=== PATIENT | male | born 1955 | race Caucasian/White ===

== ENCOUNTER 2017-01-02 19:05 | Inpatient (IN) | payer OTHER ==
[~2017-01-02] VITALS: Ht 180.3 cm; Wt 72.6 kg
[~2017-01-02 19:05] MED LIST: ATI1 PO; ATIVAN1 MG PO; CLEOCIN HCL300 MG PO; CLINDAMYCIN HC300 MG PO; FLAGYL500 MG PO; FOL1 PO; LAC PO; LEVAQUIN750 MG PO; LEVOFLOXACIN500 M1 PO; METOPROLOL TART25 M1 PO; MORPHINE SULFAT15 MG PO; MOTRIN800 MG PO; MUCINEX600 MG PO; NOR10T PO; OMEPRAZOLE DR20 M1 PO; OMEPRAZOLE40 M1 PO; PROVENTIL0.09 MG/A1 INH; THI100 PO; ZES10 PO; ZOC20 PO; ZOFRAN ODT4 MG SL
[2017-01-02 19:43] LABS: BASOPHIL % 0.1 % (0-2); PLATELET COUNT 193 x10^3mcL (130-400)
[2017-01-02 19:52] LABS: CALCIUM 8.2 mg/dL (8.5-10.1); CHLORIDE SERUM 105 mmol/L (98-107); CREATININE SERUM 0.6 mg/dL (0.7-1.3); GFR1 > 60 mL/min; GLUCOSE SERUM 97 mg/dL (74-106); POTASSIUM SERUM 3.2 mmol/L (3.5-5.1); RED CELL DISTRIBUTION WIDTH 14.9 % (11.5-14.5); SODIUM SERUM 142 mmol/L (136-145)
[2017-01-02 19:56] LABS: ALBUMIN 3.7 g/dL (3.4-5.0); ALKALINE PHOSPHATASE 90 U/L (46-116); ALT/SGPT 30 U/L (16-63); AST/SGOT 48 U/L (15-37); BILIRUBIN TOTAL 1.49 mg/dL (0.20-1.00); LIPASE 246 IU/L (73-393)
[2017-01-02 19:58] LABS: AMYLASE 117 U/L (25-115)
[2017-01-02] MEDS ORDERED: NOR10T (22:27)
[2017-01-02 22:40] LABS: CHOLESTEROL/HDL RATIO 1.4; PHOSPHOROUS 3.7 mg/dL (2.5-4.9)
[2017-01-02 22:48] LABS: T3 TOTAL 0.99 ng/mL
[2017-01-02 22:57] VITALS: BP 113/71
[2017-01-02 22:58] LABS: FREE T4 0.01 ng/dL (0.76-1.46); FREE THYROXINE INDEX 1.4 ug/dL (1.4-4.5); T4(THYROXINE) 2.4 ug/dL (4.7-13.3)
[2017-01-02 23:08] VITALS: BP 113/71
[2017-01-03 04:59] VITALS: BP 107/62
[2017-01-03 06:24] LABS: microscopic required? NO
[2017-01-03 06:39] LABS: urine erythrocyte NEGATIVE (NEGATIVE)
[2017-01-03 06:48] LABS: PLATELET COUNT 152 x10^3mcL (130-400)
[2017-01-03 06:57] LABS: RED CELL DISTRIBUTION WIDTH 15.1 % (11.5-14.5)
[2017-01-03 07:14] LABS: CALCIUM 7.3 mg/dL (8.5-10.1); CARBON DIOXIDE 25.4 mmol/L (21-32); CHLORIDE SERUM 106 mmol/L (98-107); CREATININE SERUM 0.6 mg/dL (0.7-1.3); GFR1 > 60 mL/min; GLUCOSE SERUM 68 mg/dL (74-106); MAGNESIUM 1.9 mg/dL (1.8-2.4); POTASSIUM SERUM 3.3 mmol/L (3.5-5.1); SODIUM SERUM 142 mmol/L (136-145)
[2017-01-03 07:28] LABS: AMPHETAMINE QUAL UR NONE DETECTED (NEG <=1000)
[2017-01-03 09:50] VITALS: BP 118/73
[2017-01-03 10:21] LABS: BAND NEUTROPHIL 0 % (0-10); BASOPHIL 0 % (0-2); MONOCYTE 7 % (0-7); SEGMENTED NEUTROPHILS 53 % (37-75)
[2017-01-03 10:22] LABS: PLATELET MORPHOLOGY PLATELETS NORMAL
[2017-01-03 14:50] VITALS: BP 124/78
[2017-01-03 17:45] VITALS: BP 141/87
[2017-01-03 21:59] VITALS: BP 141/91
[2017-01-04 06:40] LABS: BASOPHIL % 0.3 % (0-2); PLATELET COUNT 144 x10^3mcL (130-400); RED CELL DISTRIBUTION WIDTH 14.4 % (11.5-14.5)
[2017-01-04 06:43] LABS: CALCIUM 8.1 mg/dL (8.5-10.1); CARBON DIOXIDE 26.6 mmol/L (21-32); CHLORIDE SERUM 100 mmol/L (98-107); CREATININE SERUM 0.6 mg/dL (0.7-1.3); GFR1 > 60 mL/min; GLUCOSE SERUM 111 mg/dL (74-106); MAGNESIUM 1.5 mg/dL (1.8-2.4); PHOSPHOROUS 3.1 mg/dL (2.5-4.9); POTASSIUM SERUM 3.5 mmol/L (3.5-5.1); SODIUM SERUM 134 mmol/L (136-145)
[2017-01-04 06:52] VITALS: BP 151/94
[2017-01-04 07:59] VITALS: BP 128/80
[2017-01-04 13:01] VITALS: BP 112/75
[2017-01-04 14:15] VITALS: BP 137/86
[2017-01-04 18:04] VITALS: BP 104/77
[2017-01-04 21:10] VITALS: Ht 180.3 cm; Wt 72.6 kg
[2017-01-04 21:35] VITALS: BP 113/73
[2017-01-05 06:07] VITALS: BP 116/75
[2017-01-05 06:10] LABS: BASOPHIL % 0.2 % (0-2); PLATELET COUNT 132 x10^3mcL (130-400)
[2017-01-05 06:26] LABS: CALCIUM 8.2 mg/dL (8.5-10.1); CARBON DIOXIDE 26.8 mmol/L (21-32); CHLORIDE SERUM 105 mmol/L (98-107); CREATININE SERUM 0.7 mg/dL (0.7-1.3); GFR1 > 60 mL/min; GLUCOSE SERUM 94 mg/dL (74-106); PHOSPHOROUS 3.9 mg/dL (2.5-4.9); SODIUM SERUM 139 mmol/L (136-145)
[2017-01-05 06:30] LABS: ALBUMIN 3.1 g/dL (3.4-5.0)
[2017-01-05 06:49] LABS: RED CELL DISTRIBUTION WIDTH 15.2 % (11.5-14.5)
[2017-01-05 09:04] VITALS: BP 98/65
[2017-01-05] MEDS ORDERED: QUETIAPINE FUMA25 M1 PO (16:07)
[2017-01-05] MEDS ORDERED: ATI1 PO (16:17)
[2017-01-05] MEDS ORDERED: COLACE100 MG PO (16:22)
[2017-01-05] MEDS ORDERED: NORCO1 TA2 PO (16:22)
[2017-01-05 16:55] VITALS: BP 105/75
[2017-01-05 16:57] VITALS: BP 105/75
== END 2017-01-05 18:00 | disposition home or self-care (01) | DRG 775 ==
LOC: ED 19:05 → MU 21:36 → DU 21:36 → MU 01-03 13:23
PROVIDERS: Emergency Medicine; Family Medicine; ADMIT Family Medicine
DX: F10.129 Alcohol abuse with intoxication, unspecified (principal); G92 Toxic encephalopathy; K85.90 Acute pancreatitis without necrosis or infection, unspecified; S62.112A Displaced fracture of triquetrum [cuneiform] bone, left wrist, initial encounter for closed fracture; E87.6 Hypokalemia; E83.51 Hypocalcemia; E05.90 Thyrotoxicosis, unspecified without thyrotoxic crisis or storm; E83.42 Hypomagnesemia; G40.909 Epilepsy, unspecified, not intractable, without status epilepticus; J45.909 Unspecified asthma, uncomplicated; K29.70 Gastritis, unspecified, without bleeding; X58.XXXA Exposure to other specified factors, initial encounter; Y93.9 Activity, unspecified; M19.90 Unspecified osteoarthritis, unspecified site; Z86.73 Personal history of transient ischemic attack (TIA), and cerebral infarction without residual deficits; F31.9 Bipolar disorder, unspecified; Z98.890 Other specified postprocedural states; Z80.9 Family history of malignant neoplasm, unspecified; Z82.3 Family history of stroke; F17.200 Nicotine dependence, unspecified, uncomplicated
CPT/HCPCS: 80307; 83880; 84439; 97116-GP; 97530-GP; G0480; J2270; J2405; J3411; J3475; J3490; J3535; J7030; Q0092; Q0162

== ENCOUNTER 2017-01-12 16:43 | Inpatient (IN) | payer OTHER ==
[~2017-01-12] VITALS: Ht 180.3 cm; Wt 60.8 kg
[~2017-01-12 16:43] MED LIST changes: +COLACE100 MG PO; +NOR10T; +NORCO1 TA2 PO; +QUETIAPINE FUMA25 M1 PO
[2017-01-12 18:12] LABS: BASOPHIL % 0.3 % (0-2); PLATELET COUNT 289 x10^3mcL (130-400)
[2017-01-12 18:17] LABS: RED CELL DISTRIBUTION WIDTH 15.1 % (11.5-14.5)
[2017-01-12 18:21] LABS: CALCIUM 8.4 mg/dL (8.5-10.1); CARBON DIOXIDE 27.4 mmol/L (21-32); CHLORIDE SERUM 100 mmol/L (98-107); CREATININE SERUM 0.8 mg/dL (0.7-1.3); GFR1 > 60 mL/min; GLUCOSE SERUM 68 mg/dL (74-106); POTASSIUM SERUM 3.4 mmol/L (3.5-5.1); SODIUM SERUM 139 mmol/L (136-145)
[2017-01-12 18:30] LABS: ALBUMIN 3.9 g/dL (3.4-5.0); ALKALINE PHOSPHATASE 86 U/L (46-116); ALT/SGPT 24 U/L (16-63); AST/SGOT 38 U/L (15-37); TOTAL PROTEIN, SERUM 7.5 g/dL (6.4-8.2)
[2017-01-12 18:37] LABS: AMPHETAMINE QUAL UR NONE DETECTED (NEG <=1000)
[2017-01-13] MEDS ORDERED: LISINOPRIL2.5 MG ×2 (13:07→13:09)
[2017-01-13] MEDS ORDERED: OXYBUTYNIN CHLO10 MG PO (13:08)
[2017-01-13] MEDS ORDERED: COZAAR100 MG (13:08)
[2017-01-13] MEDS ORDERED: LABETALOL HYDR300 MG PO (13:09)
[2017-01-13] MEDS ORDERED: NOR10T PO (14:13)
[2017-01-13] MEDS ORDERED: ATIVAN1 MG PO (14:21)
[2017-01-13] MEDS ORDERED: SEROQUEL50 M1 PO (14:22)
[2017-01-13] MEDS ORDERED: NAPROXEN DELAY500 M1 PO (14:22)
[2017-01-13] MEDS ORDERED: COLACE100 MG PO (14:22)
[2017-01-13] MEDS ORDERED: GOOD SENSE OMEP20 MG PO (14:23)
[2017-01-13 15:22] LABS: PHOSPHOROUS 2.4 mg/dL (2.5-4.9)
[2017-01-13 15:28] LABS: T3 TOTAL 0.76 ng/mL
[2017-01-13 15:35] LABS: FREE T4 0.93 ng/dL (0.76-1.46); FREE THYROXINE INDEX 2.1 ug/dL (1.4-4.5); MAGNESIUM 1.8 mg/dL (1.8-2.4); T4(THYROXINE) 6.2 ug/dL (4.7-13.3)
[2017-01-13 15:48] LABS: CHOLESTEROL/HDL RATIO 1.4
[2017-01-13 16:47] VITALS: BP 132/89
[2017-01-13 18:22] VITALS: BP 132/89
[2017-01-13 20:29] VITALS: BP 114/59
[2017-01-13 21:09] LABS: microscopic required? NO
[2017-01-13 22:36] LABS: AMPHETAMINE QUAL UR NONE DETECTED (NEG <=1000)
[2017-01-13 22:39] LABS: urine erythrocyte NEGATIVE (NEGATIVE)
[2017-01-14 05:51] VITALS: BP 112/67
[2017-01-14 08:30] VITALS: BP 97/57
[2017-01-14 18:12] VITALS: BP 125/71
[2017-01-14 19:40] VITALS: BP 109/57
[2017-01-15 06:20] LABS: BASOPHIL % 0.4 % (0-2); PLATELET COUNT 249 x10^3mcL (130-400)
[2017-01-15 06:33] LABS: RED CELL DISTRIBUTION WIDTH 15.2 % (11.5-14.5)
[2017-01-15 06:38] LABS: CALCIUM 8.4 mg/dL (8.5-10.1); CARBON DIOXIDE 26.5 mmol/L (21-32); CHLORIDE SERUM 105 mmol/L (98-107); CREATININE SERUM 0.7 mg/dL (0.7-1.3); GFR1 > 60 mL/min; GLUCOSE SERUM 89 mg/dL (74-106); MAGNESIUM 3.5 mg/dL (1.8-2.4); PHOSPHOROUS 4.5 mg/dL (2.5-4.9); POTASSIUM SERUM 4.2 mmol/L (3.5-5.1); SODIUM SERUM 140 mmol/L (136-145)
[2017-01-15 09:50] VITALS: BP 101/58
[2017-01-15 17:17] VITALS: BP 101/55
[2017-01-15] MEDS ORDERED: SEROQUEL100 MG PO (18:39)
[2017-01-15 19:03] VITALS: BP 101/55
[2017-01-15 20:48] VITALS: BP 104/66
== END 2017-01-15 21:10 | DRG 775 ==
LOC: ED 16:43 → DU 01-13 14:50 → MU 01-13 14:50 → DU 01-13 16:36 → MU 01-14 06:23
PROVIDERS: Emergency Medicine; Family Medicine; ADMIT Family Medicine
DX: F10.229 Alcohol dependence with intoxication, unspecified (principal); F10.239 Alcohol dependence with withdrawal, unspecified; G92 Toxic encephalopathy; F31.5 Bipolar disorder, current episode depressed, severe, with psychotic features; E83.39 Other disorders of phosphorus metabolism; G40.909 Epilepsy, unspecified, not intractable, without status epilepticus; J45.909 Unspecified asthma, uncomplicated; E87.6 Hypokalemia; F17.210 Nicotine dependence, cigarettes, uncomplicated; R74.0 Nonspecific elevation of levels of transaminase and lactic acid dehydrogenase [LDH]; K29.70 Gastritis, unspecified, without bleeding; Z53.29 Procedure and treatment not carried out because of patient's decision for other reasons; E16.2 Hypoglycemia, unspecified; K29.20 Alcoholic gastritis without bleeding; Y90.9 Presence of alcohol in blood, level not specified; Z79.899 Other long term (current) drug therapy; Z85.46 Personal history of malignant neoplasm of prostate; Z86.73 Personal history of transient ischemic attack (TIA), and cerebral infarction without residual deficits; Z88.6 Allergy status to analgesic agent; Z80.9 Family history of malignant neoplasm, unspecified; Z82.3 Family history of stroke
CPT/HCPCS: 80307; 84439; 94150; G0480; J7030; J7620; J7626; Q0162

== ENCOUNTER 2017-01-23 23:23 | Emergency (ER) | payer OTHER ==
[~2017-01-23 23:23] MED LIST changes: +COZAAR100 MG; +GOOD SENSE OMEP20 MG PO; +LABETALOL HYDR300 MG PO; +LISINOPRIL2.5 MG; +NAPROXEN DELAY500 M1 PO; +OXYBUTYNIN CHLO10 MG PO; +SEROQUEL100 MG PO; +SEROQUEL50 M1 PO
[2017-01-23 23:54] LABS: BASOPHIL % 0.6 % (0-2); PLATELET COUNT 265 x10^3mcL (130-400); RED CELL DISTRIBUTION WIDTH 15.6 % (11.5-14.5)
[2017-01-24 00:54] LABS: CALCIUM 7.8 mg/dL (8.5-10.1); CARBON DIOXIDE 27.3 mmol/L (21-32); CHLORIDE SERUM 106 mmol/L (98-107); CREATININE SERUM 0.7 mg/dL (0.7-1.3); GFR1 > 60 mL/min; GLUCOSE SERUM 80 mg/dL (74-106); POTASSIUM SERUM 3.8 mmol/L (3.5-5.1); SODIUM SERUM 144 mmol/L (136-145)
[2017-01-24 00:58] LABS: ALBUMIN 3.5 g/dL (3.4-5.0); ALKALINE PHOSPHATASE 66 U/L (46-116); ALT/SGPT 31 U/L (16-63); AST/SGOT 35 U/L (15-37); BILIRUBIN TOTAL 0.3 mg/dL (0.20-1.00)
[2017-01-24 02:01] LABS: AMPHETAMINE QUAL UR NONE DETECTED (NEG <=1000)
[2017-01-24 06:40] VITALS: BP 104/69
== END 2017-01-24 06:40 | disposition home or self-care (01) ==
LOC: ED 23:23
PROVIDERS: Emergency Medicine
DX: R41.82 Altered mental status, unspecified (principal); F10.129 Alcohol abuse with intoxication, unspecified; J45.909 Unspecified asthma, uncomplicated; E11.9 Type 2 diabetes mellitus without complications; Z86.73 Personal history of transient ischemic attack (TIA), and cerebral infarction without residual deficits
CPT/HCPCS: 80307; G0480

== ENCOUNTER 2017-01-24 10:40 | Emergency (ER) | payer OTHER ==
[2017-01-24 11:21] LABS: microscopic required? NO
[2017-01-24 11:26] LABS: BASOPHIL % 0.2 % (0-2); PLATELET COUNT 268 x10^3mcL (130-400)
[2017-01-24 11:38] LABS: RED CELL DISTRIBUTION WIDTH 15.1 % (11.5-14.5)
[2017-01-24 11:40] LABS: CALCIUM 8.2 mg/dL (8.5-10.1); CHLORIDE SERUM 106 mmol/L (98-107); CREATININE SERUM 0.6 mg/dL (0.7-1.3); GFR1 > 60 mL/min; GLUCOSE SERUM 88 mg/dL (74-106); POTASSIUM SERUM 3.9 mmol/L (3.5-5.1); SODIUM SERUM 144 mmol/L (136-145)
[2017-01-24 11:40] LABS: UA SPECIFIC GRAVITY <=1.005 (1.005-1.035); urine erythrocyte NEGATIVE (NEGATIVE)
[2017-01-24 11:46] LABS: ALBUMIN 3.9 g/dL (3.4-5.0); ALKALINE PHOSPHATASE 73 U/L (46-116); ALT/SGPT 35 U/L (16-63); AST/SGOT 43 U/L (15-37); BILIRUBIN TOTAL 0.31 mg/dL (0.20-1.00)
[2017-01-24 11:56] LABS: AMPHETAMINE QUAL UR NONE DETECTED (NEG <=1000)
[2017-01-24 14:01] VITALS: BP 117/74
== END 2017-01-24 14:01 | disposition home or self-care (01) ==
LOC: ED 10:40
PROVIDERS: Specialist
DX: F10.229 Alcohol dependence with intoxication, unspecified (principal); F32.9 Major depressive disorder, single episode, unspecified; B44.1 Other pulmonary aspergillosis; Z86.11 Personal history of tuberculosis; Z90.2 Acquired absence of lung [part of]
CPT/HCPCS: 80307; 83880; G0480; J3490

== ENCOUNTER 2017-01-25 18:56 | Emergency (ER) | payer OTHER ==
[2017-01-25 20:25] LABS: BASOPHIL % 0.3 % (0-2); PLATELET COUNT 236 x10^3mcL (130-400); RED CELL DISTRIBUTION WIDTH 15.2 % (11.5-14.5)
[2017-01-25 20:34] LABS: CALCIUM 8.3 mg/dL (8.5-10.1); CARBON DIOXIDE 28.6 mmol/L (21-32); CHLORIDE SERUM 106 mmol/L (98-107); CREATININE SERUM 0.8 mg/dL (0.7-1.3); GFR1 > 60 mL/min; GLUCOSE SERUM 91 mg/dL (74-106); POTASSIUM SERUM 3.1 mmol/L (3.5-5.1); SODIUM SERUM 143 mmol/L (136-145)
[2017-01-25 20:39] LABS: ALBUMIN 3.5 g/dL (3.4-5.0); ALKALINE PHOSPHATASE 75 U/L (46-116); ALT/SGPT 28 U/L (16-63); AMYLASE 75 U/L (25-115); AST/SGOT 42 U/L (15-37); BILIRUBIN TOTAL 0.5 mg/dL (0.20-1.00); LIPASE 78 IU/L (73-393); TOTAL PROTEIN, SERUM 6.3 g/dL (6.4-8.2)
[2017-01-26 07:06] VITALS: BP 128/68
== END 2017-01-26 07:06 | disposition home or self-care (01) ==
LOC: ED 18:56
PROVIDERS: Emergency Medicine
DX: F10.129 Alcohol abuse with intoxication, unspecified (principal); R10.9 Unspecified abdominal pain; I63.9 Cerebral infarction, unspecified; E11.9 Type 2 diabetes mellitus without complications; J45.909 Unspecified asthma, uncomplicated; Z88.6 Allergy status to analgesic agent
CPT/HCPCS: G0480; J7030

== ENCOUNTER 2017-01-26 13:54 | Emergency (ER) | payer OTHER ==
[2017-01-26 19:04] VITALS: BP 113/68
== END 2017-01-26 19:04 | disposition home or self-care (01) ==
LOC: ED 13:54
DX: F10.229 Alcohol dependence with intoxication, unspecified (principal); J45.909 Unspecified asthma, uncomplicated; E11.9 Type 2 diabetes mellitus without complications; Z86.73 Personal history of transient ischemic attack (TIA), and cerebral infarction without residual deficits
CPT/HCPCS: 82962

== ENCOUNTER 2017-01-26 20:51 | Emergency (ER) | payer OTHER ==
[2017-01-26 22:44] VITALS: BP 115/69
== END 2017-01-26 22:40 | disposition other institution (70) ==
LOC: ED 20:51
DX: F10.229 Alcohol dependence with intoxication, unspecified (principal); E11.9 Type 2 diabetes mellitus without complications; Z86.73 Personal history of transient ischemic attack (TIA), and cerebral infarction without residual deficits; Z88.8 Allergy status to other drugs, medicaments and biological substances

== ENCOUNTER 2017-02-02 08:08 | Emergency (ER) | payer OTHER ==
[~2017-02-02] VITALS: Ht 152.4 cm; Wt 61.2 kg
[2017-02-02 10:46] LABS: BASOPHIL % 0.1 % (0-2); PLATELET COUNT 220 x10^3mcL (130-400); RED CELL DISTRIBUTION WIDTH 15.8 % (11.5-14.5)
[2017-02-02 10:50] LABS: CALCIUM 8.8 mg/dL (8.5-10.1); CARBON DIOXIDE 24.8 mmol/L (21-32); CHLORIDE SERUM 101 mmol/L (98-107); CREATININE SERUM 0.6 mg/dL (0.7-1.3); GFR1 > 60 mL/min; GLUCOSE SERUM 144 mg/dL (74-106); POTASSIUM SERUM 3.4 mmol/L (3.5-5.1); SODIUM SERUM 141 mmol/L (136-145)
[2017-02-02 10:55] LABS: ALBUMIN 4.1 g/dL (3.4-5.0); ALKALINE PHOSPHATASE 74 U/L (46-116); ALT/SGPT 22 U/L (16-63); AST/SGOT 36 U/L (15-37); BILIRUBIN TOTAL 0.69 mg/dL (0.20-1.00); LIPASE 81 IU/L (73-393); MAGNESIUM 1.4 mg/dL (1.8-2.4); TOTAL PROTEIN, SERUM 7.4 g/dL (6.4-8.2)
[2017-02-02 15:04] VITALS: BP 140/78
== END 2017-02-02 15:04 | disposition home or self-care (01) ==
LOC: ED 08:08
PROVIDERS: Emergency Medicine
DX: K29.20 Alcoholic gastritis without bleeding (principal); E87.8 Other disorders of electrolyte and fluid balance, not elsewhere classified; F10.20 Alcohol dependence, uncomplicated; D64.9 Anemia, unspecified; F31.9 Bipolar disorder, unspecified; J45.909 Unspecified asthma, uncomplicated; G40.909 Epilepsy, unspecified, not intractable, without status epilepticus; Z86.73 Personal history of transient ischemic attack (TIA), and cerebral infarction without residual deficits; Z88.6 Allergy status to analgesic agent; Z87.891 Personal history of nicotine dependence
CPT/HCPCS: J2405; J2765; J3490; J7030

== ENCOUNTER 2017-02-10 12:00 | Emergency (ER) | payer OTHER ==
[2017-02-10 18:18] VITALS: BP 125/69
== END 2017-02-10 18:18 | disposition home or self-care (01) ==
LOC: ED 12:00
DX: F10.129 Alcohol abuse with intoxication, unspecified (principal)

== ENCOUNTER 2017-04-03 15:07 | Emergency (ER) | payer OTHER ==
[2017-04-03 16:43] VITALS: BP 123/85
== END 2017-04-03 16:43 | disposition home or self-care (01) ==
LOC: ED 15:07
DX: S05.11XA Contusion of eyeball and orbital tissues, right eye, initial encounter (principal); H10.9 Unspecified conjunctivitis; J45.909 Unspecified asthma, uncomplicated; E11.9 Type 2 diabetes mellitus without complications; G40.909 Epilepsy, unspecified, not intractable, without status epilepticus; F10.20 Alcohol dependence, uncomplicated; Z79.899 Other long term (current) drug therapy; Z79.891 Long term (current) use of opiate analgesic; Z88.8 Allergy status to other drugs, medicaments and biological substances; Y04.2XXA Assault by strike against or bumped into by another person, initial encounter; Y93.89 Activity, other specified; Y92.89 Other specified places as the place of occurrence of the external cause; Y99.8 Other external cause status

== ENCOUNTER 2017-04-17 17:24 | Emergency (ER) | payer OTHER ==
[~2017-04-17] VITALS: Ht 182.9 cm; Wt 83.9 kg
[2017-04-17 20:46] LABS: CALCIUM 8.1 mg/dL (8.5-10.1); CARBON DIOXIDE 29.1 mmol/L (21-32); CHLORIDE SERUM 103 mmol/L (98-107); CREATININE SERUM 0.8 mg/dL (0.7-1.3); GFR1 > 60 mL/min; GLUCOSE SERUM 91 mg/dL (74-106); POTASSIUM SERUM 3.3 mmol/L (3.5-5.1); SODIUM SERUM 142 mmol/L (136-145)
[2017-04-17 20:48] LABS: BASOPHIL % 0.4 % (0-2); PLATELET COUNT 183 x10^3mcL (130-400)
[2017-04-17 20:51] LABS: ALBUMIN 3.9 g/dL (3.4-5.0); ALKALINE PHOSPHATASE 66 U/L (46-116); ALT/SGPT 35 U/L (16-63); AST/SGOT 66 U/L (15-37); BILIRUBIN TOTAL 0.86 mg/dL (0.20-1.00); TOTAL PROTEIN, SERUM 7.2 g/dL (6.4-8.2)
[2017-04-17 20:57] LABS: RED CELL DISTRIBUTION WIDTH 18.7 % (11.5-14.5)
[2017-04-18 03:30] VITALS: BP 101/60
== END 2017-04-18 03:30 | disposition home or self-care (01) ==
LOC: ED 17:24
PROVIDERS: Emergency Medicine
DX: S20.212A Contusion of left front wall of thorax, initial encounter (principal); J45.909 Unspecified asthma, uncomplicated; E11.9 Type 2 diabetes mellitus without complications; Z86.73 Personal history of transient ischemic attack (TIA), and cerebral infarction without residual deficits; W18.30XA Fall on same level, unspecified, initial encounter; Y93.89 Activity, other specified; Y92.89 Other specified places as the place of occurrence of the external cause; Y99.8 Other external cause status
CPT/HCPCS: J7030; Q0092; Q9967

== ENCOUNTER 2017-04-23 19:20 | Emergency (ER) | payer OTHER ==
[2017-04-24 00:17] VITALS: BP 129/76
== END 2017-04-24 00:17 | disposition home or self-care (01) ==
LOC: ED 19:20
DX: S20.212A Contusion of left front wall of thorax, initial encounter (principal); E11.9 Type 2 diabetes mellitus without complications; J45.909 Unspecified asthma, uncomplicated; Z86.73 Personal history of transient ischemic attack (TIA), and cerebral infarction without residual deficits; W18.30XA Fall on same level, unspecified, initial encounter; Y93.89 Activity, other specified; Y99.8 Other external cause status; Y92.89 Other specified places as the place of occurrence of the external cause
CPT/HCPCS: J7030

== ENCOUNTER 2017-07-01 07:17 | Emergency (ER) | payer OTHER ==
[2017-07-01 08:03] LABS: CALCIUM 8.6 mg/dL (8.5-10.1); CARBON DIOXIDE 24.7 mmol/L (21-32); CHLORIDE SERUM 94 mmol/L (98-107); CREATININE SERUM 0.6 mg/dL (0.7-1.3); GFR1 > 60 mL/min; GLUCOSE SERUM 97 mg/dL (74-106); POTASSIUM SERUM 3.2 mmol/L (3.5-5.1); SODIUM SERUM 135 mmol/L (136-145)
[2017-07-01 08:08] LABS: ALKALINE PHOSPHATASE 95 U/L (46-116); ALT/SGPT 21 U/L (16-63); AST/SGOT 37 U/L (15-37); BILIRUBIN TOTAL 2.81 mg/dL (0.20-1.00); LIPASE 108 IU/L (73-393); TOTAL PROTEIN, SERUM 7.6 g/dL (6.4-8.2)
[2017-07-01 08:17] LABS: BASOPHIL % 0.2 % (0-2); PLATELET COUNT 164 x10^3mcL (130-400)
[2017-07-01 08:18] LABS: RED CELL DISTRIBUTION WIDTH 16.8 % (11.5-14.5)
[2017-07-01 10:01] VITALS: BP 108/62
== END 2017-07-01 10:01 | disposition home or self-care (01) ==
LOC: ED 07:17
PROVIDERS: Emergency Medicine
DX: R10.12 Left upper quadrant pain (principal); E87.6 Hypokalemia; J45.909 Unspecified asthma, uncomplicated; R11.10 Vomiting, unspecified; G89.29 Other chronic pain; R07.89 Other chest pain; Z88.6 Allergy status to analgesic agent; Z87.19 Personal history of other diseases of the digestive system
CPT/HCPCS: J2550; J3010; J7030

== ENCOUNTER 2017-11-26 13:54 | Emergency (ER) | payer OTHER ==
[~2017-11-26] VITALS: Ht 177.8 cm; Wt 70.3 kg
[2017-11-26 14:13] VITALS: Ht 177.8 cm; Wt 70.3 kg
[2017-11-26 15:21] VITALS: BP 112/74
== END 2017-11-26 15:21 | disposition home or self-care (01) ==
LOC: ED 13:54
DX: B02.8 Zoster with other complications (principal); J45.909 Unspecified asthma, uncomplicated; G89.29 Other chronic pain; G40.909 Epilepsy, unspecified, not intractable, without status epilepticus; Z86.73 Personal history of transient ischemic attack (TIA), and cerebral infarction without residual deficits; Z88.6 Allergy status to analgesic agent

== ENCOUNTER 2018-04-11 14:18 | Inpatient (IN) | payer OTHER ==
[~2018-04-11] VITALS: Ht 180.3 cm; Wt 64.9 kg
[2018-04-11 16:08] LABS: BASOPHIL % 0.8 % (0-2); PLATELET COUNT 214 x10^3mcL (130-400); RED CELL DISTRIBUTION WIDTH 15.3 % (11.5-14.5)
[2018-04-11 16:16] LABS: CALCIUM 8.8 mg/dL (8.5-10.1); CARBON DIOXIDE 24.8 mmol/L (21-32); CHLORIDE SERUM 104 mmol/L (98-107); GLUCOSE SERUM 96 mg/dL (74-106); POTASSIUM SERUM 3.3 mmol/L (3.5-5.1); SODIUM SERUM 140 mmol/L (136-145)
[2018-04-11 16:18] LABS: ALKALINE PHOSPHATASE 91 U/L (46-116); ALT/SGPT 17 U/L (16-63); AST/SGOT 19 U/L (15-37); BILIRUBIN TOTAL 0.6 mg/dL (0.20-1.00); LIPASE 148 IU/L (73-393); TOTAL PROTEIN, SERUM 7.6 g/dL (6.4-8.2)
[2018-04-11 16:19] LABS: HDL CHOLESTEROL 68 mg/dL (40-60)
[2018-04-11 16:29] LABS: T3 TOTAL 1.06 ng/mL
[2018-04-11 16:32] LABS: CHOLESTEROL 180 mg/dL (<200); CHOLESTEROL/HDL RATIO 2.6; CREATININE SERUM 0.7 mg/dL (0.7-1.3); GFR1 > 60 mL/min
[2018-04-11 16:33] LABS: TRIGLYCERIDES 144 mg/dL (<150)
[2018-04-11 16:51] LABS: FREE T4 1.28 ng/dL (0.76-1.46); FREE THYROXINE INDEX 3.9 ug/dL (1.4-4.5); T4(THYROXINE) 10.5 ug/dL (4.7-13.3)
[2018-04-11] MEDS ORDERED: NEU300 PO (16:52)
[2018-04-11 17:03] LABS: UA SPECIFIC GRAVITY <=1.005 (1.005-1.035); microscopic required? YES; urine erythrocyte TRACE (NEGATIVE)
[2018-04-11 17:53] VITALS: BP 127/77
[2018-04-11 18:03] VITALS: Ht 180.3 cm; Wt 64.9 kg
[2018-04-11 18:40] LABS: MAGNESIUM 2.3 mg/dL (1.8-2.4); PHOSPHOROUS 4.3 mg/dL (2.5-4.9)
[2018-04-11 19:37] LABS: AMPHETAMINE QUAL UR NONE DETECTED (See below)
[2018-04-11 21:28] VITALS: BP 98/62
[2018-04-12 05:46] VITALS: BP 129/65
[2018-04-12 07:20] LABS: CARBON DIOXIDE 25.5 mmol/L (21-32); CHLORIDE SERUM 106 mmol/L (98-107); GLUCOSE SERUM 93 mg/dL (74-106); MAGNESIUM 1.8 mg/dL (1.8-2.4); PHOSPHOROUS 3.3 mg/dL (2.5-4.9); POTASSIUM SERUM 4.3 mmol/L (3.5-5.1); SODIUM SERUM 139 mmol/L (136-145)
[2018-04-12 07:24] LABS: CREATININE SERUM 0.8 mg/dL (0.7-1.3); GFR1 > 60 mL/min
[2018-04-12 07:46] LABS: BASOPHIL % 0.3 % (0-2); PLATELET COUNT 187 x10^3mcL (130-400)
[2018-04-12 07:47] LABS: RED CELL DISTRIBUTION WIDTH 15.5 % (11.5-14.5)
[2018-04-12 08:43] VITALS: BP 110/66
[2018-04-12 12:43] VITALS: BP 145/92
[2018-04-12 14:41] VITALS: BP 145/92
[2018-04-12 17:59] VITALS: BP 102/57
[2018-04-12 21:06] VITALS: BP 107/70
[2018-04-13 05:06] VITALS: BP 114/68
[2018-04-13 06:22] LABS: CALCIUM 8.6 mg/dL (8.5-10.1); CARBON DIOXIDE 26.8 mmol/L (21-32); CHLORIDE SERUM 106 mmol/L (98-107); CREATININE SERUM 0.7 mg/dL (0.7-1.3); GFR1 > 60 mL/min; GLUCOSE SERUM 131 mg/dL (74-106); MAGNESIUM 1.8 mg/dL (1.8-2.4); PHOSPHOROUS 3.7 mg/dL (2.5-4.9); POTASSIUM SERUM 4.5 mmol/L (3.5-5.1); SODIUM SERUM 139 mmol/L (136-145)
[2018-04-13 07:13] LABS: PLATELET COUNT 204 x10^3mcL (130-400)
[2018-04-13 07:14] LABS: BASOPHIL % 0 % (0-2); RED CELL DISTRIBUTION WIDTH 15.8 % (11.5-14.5)
[2018-04-13 10:02] VITALS: BP 102/62
[2018-04-13 14:06] VITALS: BP 94/57
[2018-04-13 17:19] VITALS: BP 118/64
[2018-04-13 20:38] VITALS: BP 103/60
[2018-04-14 05:24] VITALS: BP 103/60
[2018-04-14 06:28] LABS: CALCIUM 8.4 mg/dL (8.5-10.1); CHLORIDE SERUM 106 mmol/L (98-107); CREATININE SERUM 0.7 mg/dL (0.7-1.3); GFR1 > 60 mL/min; GLUCOSE SERUM 137 mg/dL (74-106); MAGNESIUM 1.8 mg/dL (1.8-2.4); PHOSPHOROUS 3.4 mg/dL (2.5-4.9); POTASSIUM SERUM 3.9 mmol/L (3.5-5.1); SODIUM SERUM 141 mmol/L (136-145)
[2018-04-14 07:07] LABS: PLATELET COUNT 207 x10^3mcL (130-400)
[2018-04-14 07:09] LABS: BASOPHIL % 0 % (0-2)
[2018-04-14 09:14] VITALS: BP 104/68
[2018-04-14 13:55] VITALS: BP 114/56
[2018-04-14 17:18] VITALS: BP 115/73
[2018-04-14 20:47] VITALS: BP 128/75
[2018-04-15 06:07] VITALS: BP 124/67
[2018-04-15 06:46] LABS: PLATELET COUNT 207 x10^3mcL (130-400)
[2018-04-15 06:47] LABS: BASOPHIL % 0 % (0-2); RED CELL DISTRIBUTION WIDTH 15.7 % (11.5-14.5)
[2018-04-15 06:56] LABS: CALCIUM 9.2 mg/dL (8.5-10.1); CARBON DIOXIDE 26.7 mmol/L (21-32); CHLORIDE SERUM 102 mmol/L (98-107); CREATININE SERUM 0.7 mg/dL (0.7-1.3); GFR1 > 60 mL/min; GLUCOSE SERUM 133 mg/dL (74-106); MAGNESIUM 1.8 mg/dL (1.8-2.4); PHOSPHOROUS 3.9 mg/dL (2.5-4.9); SODIUM SERUM 138 mmol/L (136-145)
[2018-04-15 08:34] VITALS: BP 110/67
[2018-04-15] MEDS ORDERED: LIPI10 PO (09:56)
[2018-04-15] MEDS ORDERED: ZES5 PO (09:57)
[2018-04-15] MEDS ORDERED: METOPROLOL TART25 M1 PO (09:57)
[2018-04-15] MEDS ORDERED: ATI1 PO (09:58)
[2018-04-15] MEDS ORDERED: MEDDP PO (09:59)
[2018-04-15] MEDS ORDERED: AUG500 PO (10:02)
[2018-04-15] MEDS ORDERED: BD LACTINEX1.4 MG PO (10:03)
[2018-04-15 12:36] VITALS: BP 110/67
[2018-04-15 12:50] VITALS: BP 123/78
== END 2018-04-15 14:47 | disposition home or self-care (01) | DRG 140 ==
LOC: ED 14:18 → DU 16:42
PROVIDERS: Family Medicine; Specialist
DX: J44.0 Chronic obstructive pulmonary disease with (acute) lower respiratory infection (principal); J69.0 Pneumonitis due to inhalation of food and vomit; G92 Toxic encephalopathy; B44.1 Other pulmonary aspergillosis; M94.0 Chondrocostal junction syndrome [Tietze]; F10.129 Alcohol abuse with intoxication, unspecified; E87.6 Hypokalemia; F31.9 Bipolar disorder, unspecified; E78.5 Hyperlipidemia, unspecified; R31.9 Hematuria, unspecified; I34.0 Nonrheumatic mitral (valve) insufficiency; G89.29 Other chronic pain; Y90.1 Blood alcohol level of 20-39 mg/100 ml; Z53.29 Procedure and treatment not carried out because of patient's decision for other reasons; G40.909 Epilepsy, unspecified, not intractable, without status epilepticus; D72.829 Elevated white blood cell count, unspecified; T38.0X5A Adverse effect of glucocorticoids and synthetic analogues, initial encounter; J44.1 Chronic obstructive pulmonary disease with (acute) exacerbation; J20.9 Acute bronchitis, unspecified; Z68.20 Body mass index [BMI] 20.0-20.9, adult; Z86.73 Personal history of transient ischemic attack (TIA), and cerebral infarction without residual deficits; Z88.6 Allergy status to analgesic agent; Z87.01 Personal history of pneumonia (recurrent); Z82.3 Family history of stroke; Z80.9 Family history of malignant neoplasm, unspecified; Z87.891 Personal history of nicotine dependence; Z90.2 Acquired absence of lung [part of]; Z79.899 Other long term (current) drug therapy; Y92.89 Other specified places as the place of occurrence of the external cause
CPT/HCPCS: 83880; 84439; 87107; 94150; C9113; G0480; J2543; J2920; J7030; J7620; Q0092; Q9967

== ENCOUNTER 2018-04-22 14:04 | Emergency (ER) | payer OTHER ==
[~2018-04-22] VITALS: Ht 182.9 cm; Wt 77.1 kg
[~2018-04-22 14:04] MED LIST changes: +AUG500 PO; +BD LACTINEX1.4 MG PO; +LIPI10 PO; +MEDDP PO; +NEU300 PO; +ZES5 PO
[2018-04-22 14:10] VITALS: Ht 182.9 cm; Wt 77.1 kg
[2018-04-22 14:46] LABS: BASOPHIL % 0.2 % (0-2); PLATELET COUNT 330 x10^3mcL (130-400)
[2018-04-22 14:50] LABS: RED CELL DISTRIBUTION WIDTH 15.4 % (11.5-14.5)
[2018-04-22 15:30] LABS: CALCIUM 7.9 mg/dL (8.5-10.1); CARBON DIOXIDE 25.1 mmol/L (21-32); CHLORIDE SERUM 103 mmol/L (98-107); CREATININE SERUM 0.6 mg/dL (0.7-1.3); GFR1 > 60 mL/min; GLUCOSE SERUM 96 mg/dL (74-106); POTASSIUM SERUM 3.2 mmol/L (3.5-5.1); SODIUM SERUM 141 mmol/L (136-145)
[2018-04-22 15:35] LABS: ALBUMIN 3.7 g/dL (3.4-5.0); ALKALINE PHOSPHATASE 101 U/L (46-116); ALT/SGPT 20 U/L (16-63); AST/SGOT 22 U/L (15-37); BILIRUBIN TOTAL 0.8 mg/dL (0.20-1.00); TOTAL PROTEIN, SERUM 7.5 g/dL (6.4-8.2)
[2018-04-23 00:09] LABS: AMPHETAMINE QUAL UR NONE DETECTED (See below)
[2018-04-23 03:44] VITALS: BP 145/82
== END 2018-04-23 03:44 | disposition home or self-care (01) ==
LOC: ED 14:04
PROVIDERS: Emergency Medicine
DX: F10.129 Alcohol abuse with intoxication, unspecified (principal); F32.9 Major depressive disorder, single episode, unspecified; X30.XXXA Exposure to excessive natural heat, initial encounter
CPT/HCPCS: G0480; J3411; J3475; J3490; J7030

== ENCOUNTER 2018-05-01 10:58 | Emergency (ER) | payer OTHER ==
[~2018-05-01] VITALS: Ht 180.3 cm; Wt 65.8 kg
[2018-05-01 11:12] VITALS: Ht 180.3 cm; Wt 65.8 kg
[2018-05-01 12:30] LABS: BASOPHIL % 0.5 % (0-2); PLATELET COUNT 162 x10^3mcL (130-400)
[2018-05-01 12:53] LABS: CALCIUM 9.1 mg/dL (8.5-10.1); CARBON DIOXIDE 30.1 mmol/L (21-32); CHLORIDE SERUM 103 mmol/L (98-107); CREATININE SERUM 0.6 mg/dL (0.7-1.3); GFR1 > 60 mL/min; GLUCOSE SERUM 112 mg/dL (74-106); POTASSIUM SERUM 4.2 mmol/L (3.5-5.1); SODIUM SERUM 139 mmol/L (136-145)
[2018-05-01 12:57] LABS: ALBUMIN 3.7 g/dL (3.4-5.0); ALKALINE PHOSPHATASE 92 U/L (46-116); ALT/SGPT 17 U/L (16-63); AST/SGOT 18 U/L (15-37); BILIRUBIN TOTAL 1.25 mg/dL (0.20-1.00); CHOLESTEROL 162 mg/dL (<200); HDL CHOLESTEROL 82 mg/dL (40-60); PHOSPHOROUS 2.6 mg/dL (2.5-4.9); TOTAL PROTEIN, SERUM 7.2 g/dL (6.4-8.2); URIC ACID 4.7 mg/dL (3.5-7.2)
[2018-05-01 14:57] VITALS: BP 147/63
== END 2018-05-01 14:57 | disposition home or self-care (01) ==
LOC: ED 10:58
PROVIDERS: Emergency Medicine
PROC: 3E033GC Introduction of Other Therapeutic Substance into Peripheral Vein, Percutaneous Approach (ICD-10-PCS; principal; 2018-05-01)
DX: X30.XXXA Exposure to excessive natural heat, initial encounter (principal); J45.909 Unspecified asthma, uncomplicated; R56.9 Unspecified convulsions; Z86.73 Personal history of transient ischemic attack (TIA), and cerebral infarction without residual deficits; Y93.01 Activity, walking, marching and hiking; Y92.9 Unspecified place or not applicable
CPT/HCPCS: 83880; J2405; J7030; Q0092

== ENCOUNTER 2018-05-04 21:10 | Emergency (ER) | payer OTHER ==
[~2018-05-04] VITALS: Ht 170.2 cm; Wt 70.3 kg
[2018-05-04 21:24] VITALS: Ht 170.2 cm; Wt 70.3 kg
[2018-05-04 22:18] LABS: BASOPHIL % 0.3 % (0-2); PLATELET COUNT 250 x10^3mcL (130-400)
[2018-05-04 22:21] LABS: RED CELL DISTRIBUTION WIDTH 15.5 % (11.5-14.5)
[2018-05-04 22:29] LABS: CALCIUM 8.6 mg/dL (8.5-10.1); CARBON DIOXIDE 28.2 mmol/L (21-32); CHLORIDE SERUM 106 mmol/L (98-107); CREATININE SERUM 0.8 mg/dL (0.7-1.3); GFR1 > 60 mL/min; GLUCOSE SERUM 92 mg/dL (74-106); POTASSIUM SERUM 3.7 mmol/L (3.5-5.1); SODIUM SERUM 146 mmol/L (136-145)
[2018-05-04 22:34] LABS: ALBUMIN 3.8 g/dL (3.4-5.0); ALKALINE PHOSPHATASE 89 U/L (46-116); ALT/SGPT 21 U/L (16-63); AST/SGOT 23 U/L (15-37); BILIRUBIN TOTAL 0.48 mg/dL (0.20-1.00); CHOLESTEROL 187 mg/dL (<200); TOTAL PROTEIN, SERUM 7.5 g/dL (6.4-8.2)
[2018-05-04 23:45] VITALS: BP 117/75
== END 2018-05-05 00:24 | disposition home or self-care (01) ==
LOC: ED 21:10
PROVIDERS: Specialist
DX: F10.129 Alcohol abuse with intoxication, unspecified (principal); J45.909 Unspecified asthma, uncomplicated; Z86.73 Personal history of transient ischemic attack (TIA), and cerebral infarction without residual deficits; Z88.6 Allergy status to analgesic agent
CPT/HCPCS: 36415; G0480

== ENCOUNTER 2018-05-15 15:35 | Inpatient (IN) | payer OTHER ==
[~2018-05-15] VITALS: Ht 180.3 cm; Wt 70.9 kg
[2018-05-15 15:42] VITALS: Ht 180.3 cm; Wt 70.9 kg
[2018-05-15 18:20] LABS: BASOPHIL % 0.2 % (0-2); PLATELET COUNT 240 x10^3mcL (130-400)
[2018-05-15 18:21] LABS: RED CELL DISTRIBUTION WIDTH 15.4 % (11.5-14.5)
[2018-05-15 18:27] LABS: CALCIUM 6.9 mg/dL (8.5-10.1); CARBON DIOXIDE 22.1 mmol/L (21-32); CHLORIDE SERUM 107 mmol/L (98-107); CREATININE SERUM 0.8 mg/dL (0.7-1.3); GFR1 > 60 mL/min; GLUCOSE SERUM 87 mg/dL (74-106); POTASSIUM SERUM 3.3 mmol/L (3.5-5.1); SODIUM SERUM 140 mmol/L (136-145)
[2018-05-15 18:32] LABS: ALBUMIN 3.5 g/dL (3.4-5.0); ALKALINE PHOSPHATASE 80 U/L (46-116); ALT/SGPT 12 U/L (16-63); AST/SGOT 16 U/L (15-37); BILIRUBIN TOTAL 0.6 mg/dL (0.20-1.00); TOTAL PROTEIN, SERUM 6.6 g/dL (6.4-8.2)
[2018-05-15 19:38] LABS: PHOSPHOROUS 2.2 mg/dL (2.5-4.9)
[2018-05-15 19:39] LABS: CHOLESTEROL/HDL RATIO 2.5
[2018-05-15 19:42] LABS: T3 TOTAL 0.93 ng/mL
[2018-05-15 19:54] LABS: FREE T4 1.09 ng/dL (0.76-1.46); FREE THYROXINE INDEX 2.6 ug/dL (1.4-4.5); T4(THYROXINE) 7.3 ug/dL (4.7-13.3)
[2018-05-15 20:21] VITALS: BP 129/81
[2018-05-16 05:58] VITALS: BP 141/75
[2018-05-16 06:46] LABS: microscopic required? NO
[2018-05-16 07:04] LABS: BASOPHIL % 0.4 % (0-2); PLATELET COUNT 222 x10^3mcL (130-400)
[2018-05-16 07:14] LABS: RED CELL DISTRIBUTION WIDTH 15.1 % (11.5-14.5)
[2018-05-16 07:21] LABS: CALCIUM 7.5 mg/dL (8.5-10.1); CARBON DIOXIDE 23.8 mmol/L (21-32); CHLORIDE SERUM 106 mmol/L (98-107); CREATININE SERUM 0.6 mg/dL (0.7-1.3); GFR1 > 60 mL/min; GLUCOSE SERUM 73 mg/dL (74-106); MAGNESIUM 1.7 mg/dL (1.8-2.4); PHOSPHOROUS 2.6 mg/dL (2.5-4.9); POTASSIUM SERUM 4.4 mmol/L (3.5-5.1); SODIUM SERUM 137 mmol/L (136-145)
[2018-05-16 08:00] VITALS: BP 125/78
[2018-05-16 08:20] LABS: UA SPECIFIC GRAVITY >=1.030 (1.005-1.035); urine erythrocyte NEGATIVE (NEGATIVE)
[2018-05-16 17:08] VITALS: BP 138/86
[2018-05-16 21:21] VITALS: BP 106/55
[2018-05-17 05:11] VITALS: BP 115/81
[2018-05-17 06:14] LABS: BASOPHIL % 0.5 % (0-2); PLATELET COUNT 219 x10^3mcL (130-400)
[2018-05-17 06:38] LABS: ALBUMIN 3.1 g/dL (3.4-5.0); ALKALINE PHOSPHATASE 61 U/L (46-116); ALT/SGPT 15 U/L (16-63); AMYLASE 96 U/L (25-115); AST/SGOT 24 U/L (15-37); BILIRUBIN TOTAL 1.43 mg/dL (0.20-1.00); CALCIUM 8.7 mg/dL (8.5-10.1); CARBON DIOXIDE 29.5 mmol/L (21-32); CHLORIDE SERUM 103 mmol/L (98-107); CREATININE SERUM 0.7 mg/dL (0.7-1.3); GFR1 > 60 mL/min; GLUCOSE SERUM 82 mg/dL (74-106); MAGNESIUM 1.7 mg/dL (1.8-2.4); PHOSPHOROUS 3.2 mg/dL (2.5-4.9); POTASSIUM SERUM 3.9 mmol/L (3.5-5.1); SODIUM SERUM 140 mmol/L (136-145); TOTAL PROTEIN, SERUM 6.1 g/dL (6.4-8.2)
[2018-05-17 06:47] LABS: RED CELL DISTRIBUTION WIDTH 15.3 % (11.5-14.5)
[2018-05-17 09:45] VITALS: BP 128/78
[2018-05-17 16:51] VITALS: BP 113/73
[2018-05-17 21:36] VITALS: BP 104/65
[2018-05-18 05:46] VITALS: BP 129/78
[2018-05-18 08:26] LABS: BASOPHIL % 0.2 % (0-2); PLATELET COUNT 238 x10^3mcL (130-400)
[2018-05-18 08:27] LABS: RED CELL DISTRIBUTION WIDTH 15.1 % (11.5-14.5)
[2018-05-18 08:52] LABS: ALKALINE PHOSPHATASE 64 U/L (46-116); AST/SGOT 19 U/L (15-37); CALCIUM 8.7 mg/dL (8.5-10.1); CARBON DIOXIDE 28.9 mmol/L (21-32); CHLORIDE SERUM 103 mmol/L (98-107); CREATININE SERUM 0.8 mg/dL (0.7-1.3); GFR1 > 60 mL/min; GLUCOSE SERUM 96 mg/dL (74-106); POTASSIUM SERUM 4.2 mmol/L (3.5-5.1); SODIUM SERUM 140 mmol/L (136-145); TOTAL PROTEIN, SERUM 6.6 g/dL (6.4-8.2)
[2018-05-18 09:00] VITALS: BP 103/70
[2018-05-18 09:00] LABS: ALBUMIN 3.3 g/dL (3.4-5.0)
[2018-05-18 09:37] LABS: ALT/SGPT 17 U/L (16-63)
[2018-05-18 12:46] VITALS: BP 103/70
== END 2018-05-18 16:38 | disposition home or self-care (01) | DRG 137 ==
LOC: ED 15:35 → MU 18:20
PROVIDERS: Emergency Medicine; Family Medicine
PROC: 3E0234Z Introduction of Serum, Toxoid and Vaccine into Muscle, Percutaneous Approach (ICD-10-PCS; principal; 2018-05-16)
DX: J69.0 Pneumonitis due to inhalation of food and vomit (principal); E83.51 Hypocalcemia; F10.129 Alcohol abuse with intoxication, unspecified; G89.29 Other chronic pain; K44.9 Diaphragmatic hernia without obstruction or gangrene; E05.80 Other thyrotoxicosis without thyrotoxic crisis or storm; G40.909 Epilepsy, unspecified, not intractable, without status epilepticus; J44.9 Chronic obstructive pulmonary disease, unspecified; J20.9 Acute bronchitis, unspecified; Y90.9 Presence of alcohol in blood, level not specified; Z60.2 Problems related to living alone; E87.6 Hypokalemia; Z90.2 Acquired absence of lung [part of]; Z68.26 Body mass index [BMI] 26.0-26.9, adult; Z87.891 Personal history of nicotine dependence; Z88.6 Allergy status to analgesic agent; Z86.73 Personal history of transient ischemic attack (TIA), and cerebral infarction without residual deficits; Z87.01 Personal history of pneumonia (recurrent); Z79.899 Other long term (current) drug therapy; Z82.3 Family history of stroke; Z80.9 Family history of malignant neoplasm, unspecified; Z85.46 Personal history of malignant neoplasm of prostate; Z23 Encounter for immunization
CPT/HCPCS: 83880; 84439; 86480; 86580; 87116; 87206; G0480; J1885; J1956; J2543; J3490; J7030; Q0092; Q9967

== ENCOUNTER 2018-06-13 17:40 | Emergency (ER) | payer OTHER ==
[~2018-06-13] VITALS: Ht 177.8 cm; Wt 61.2 kg
[2018-06-13 17:50] VITALS: Ht 177.8 cm; Wt 61.2 kg
[2018-06-13 19:21] VITALS: BP 120/75
== END 2018-06-13 19:21 | disposition home or self-care (01) ==
LOC: ED 17:40
DX: F10.129 Alcohol abuse with intoxication, unspecified (principal); J45.909 Unspecified asthma, uncomplicated; G89.29 Other chronic pain; Z86.73 Personal history of transient ischemic attack (TIA), and cerebral infarction without residual deficits; Z98.890 Other specified postprocedural states; Z88.6 Allergy status to analgesic agent; Y90.9 Presence of alcohol in blood, level not specified

== ENCOUNTER 2018-07-14 14:31 | Emergency (ER) | payer OTHER ==
[~2018-07-14] VITALS: Ht 177.8 cm; Wt 63.5 kg
[2018-07-14 14:56] VITALS: Ht 177.8 cm; Wt 63.5 kg
[2018-07-14 20:41] VITALS: BP 144/88
== END 2018-07-14 20:41 | disposition left against medical advice (07) ==
LOC: ED 14:31
DX: R55 Syncope and collapse (principal); S40.862A Insect bite (nonvenomous) of left upper arm, initial encounter; S40.861A Insect bite (nonvenomous) of right upper arm, initial encounter; S80.862A Insect bite (nonvenomous), left lower leg, initial encounter; S80.861A Insect bite (nonvenomous), right lower leg, initial encounter; J45.909 Unspecified asthma, uncomplicated; G89.29 Other chronic pain; Z98.890 Other specified postprocedural states; Z88.6 Allergy status to analgesic agent; W57.XXXA Bitten or stung by nonvenomous insect and other nonvenomous arthropods, initial encounter; Y93.89 Activity, other specified; Y92.89 Other specified places as the place of occurrence of the external cause; Y99.8 Other external cause status
CPT/HCPCS: G0480; J7030; Q0092

== ENCOUNTER 2018-08-14 18:22 | Emergency (ER) | payer OTHER ==
[~2018-08-14] VITALS: Ht 177.8 cm; Wt 59.0 kg
[2018-08-14 18:35] VITALS: Ht 177.8 cm; Wt 59.0 kg
[2018-08-14 19:19] LABS: BASOPHIL % 0.3 % (0-2); PLATELET COUNT 212 x10^3mcL (130-400)
[2018-08-14 19:20] LABS: RED CELL DISTRIBUTION WIDTH 15.1 % (11.5-14.5)
[2018-08-14 19:32] LABS: CALCIUM 8.4 mg/dL (8.5-10.1); CARBON DIOXIDE 21.9 mmol/L (21-32); CHLORIDE SERUM 102 mmol/L (98-107); CREATININE SERUM 0.7 mg/dL (0.7-1.3); GFR1 > 60 mL/min; GLUCOSE SERUM 98 mg/dL (74-106); POTASSIUM SERUM 3.3 mmol/L (3.5-5.1); SODIUM SERUM 141 mmol/L (136-145)
[2018-08-14 19:37] LABS: ALBUMIN 4.2 g/dL (3.4-5.0); ALKALINE PHOSPHATASE 91 U/L (46-116); ALT/SGPT 33 U/L (16-63); AST/SGOT 36 U/L (15-37); BILIRUBIN TOTAL 0.7 mg/dL (0.20-1.00); URIC ACID 6.4 mg/dL (3.5-7.2)
[2018-08-14 19:39] LABS: CHOLESTEROL 205 mg/dL (<200); HDL CHOLESTEROL 83 mg/dL (40-60)
[2018-08-14 22:09] VITALS: BP 110/77
== END 2018-08-14 22:09 | disposition home or self-care (01) ==
LOC: ED 18:22
PROVIDERS: Emergency Medicine
DX: F10.129 Alcohol abuse with intoxication, unspecified (principal); R53.1 Weakness; J45.909 Unspecified asthma, uncomplicated; G89.29 Other chronic pain; M79.605 Pain in left leg; Z88.6 Allergy status to analgesic agent; Z86.73 Personal history of transient ischemic attack (TIA), and cerebral infarction without residual deficits; Z85.46 Personal history of malignant neoplasm of prostate; Z90.2 Acquired absence of lung [part of]
CPT/HCPCS: G0480; J7030; Q0092

== ENCOUNTER 2018-08-16 19:51 | Inpatient (IN) | payer OTHER ==
[~2018-08-16] VITALS: Ht 180.3 cm; Wt 64.1 kg
[2018-08-16 19:56] VITALS: Ht 180.3 cm; Wt 64.1 kg
[2018-08-16 21:05] LABS: BASOPHIL % 0.3 % (0-2); PLATELET COUNT 216 x10^3mcL (130-400)
[2018-08-16 21:09] LABS: RED CELL DISTRIBUTION WIDTH 14.9 % (11.5-14.5)
[2018-08-16 21:13] LABS: CARBON DIOXIDE 27.8 mmol/L (21-32); CHLORIDE SERUM 105 mmol/L (98-107); CREATININE SERUM 0.6 mg/dL (0.7-1.3); GFR1 > 60 mL/min; GLUCOSE SERUM 104 mg/dL (74-106); POTASSIUM SERUM 3.2 mmol/L (3.5-5.1); SODIUM SERUM 141 mmol/L (136-145)
[2018-08-16 21:25] LABS: ALBUMIN 3.7 g/dL (3.4-5.0); ALKALINE PHOSPHATASE 73 U/L (46-116); ALT/SGPT 30 U/L (16-63); AST/SGOT 32 U/L (15-37); BILIRUBIN TOTAL 0.43 mg/dL (0.20-1.00); FREE T4 0.98 ng/dL (0.76-1.46); MAGNESIUM 1.5 mg/dL (1.8-2.4)
[2018-08-16 21:59] LABS: microscopic required? NO
[2018-08-16 22:21] LABS: UA SPECIFIC GRAVITY <=1.005 (1.005-1.035); urine erythrocyte NEGATIVE (NEGATIVE)
[2018-08-16] MEDS ORDERED: PHARMASSURE FO0.4 MG PO (23:18)
[2018-08-16] MEDS ORDERED: VITAMIN B122500 MC2 PO (23:19)
[2018-08-17 00:19] LABS: PHOSPHOROUS 2.8 mg/dL (2.5-4.9)
[2018-08-17 00:27] VITALS: BP 156/86
[2018-08-17 00:27] LABS: CHOLESTEROL/HDL RATIO 2.3
[2018-08-17 04:22] LABS: AMPHETAMINE QUAL UR NONE DETECTED (See below)
[2018-08-17 05:23] VITALS: BP 117/78
[2018-08-17 06:52] LABS: BASOPHIL % 0.1 % (0-2); PLATELET COUNT 171 x10^3mcL (130-400)
[2018-08-17 07:03] LABS: CALCIUM 7.5 mg/dL (8.5-10.1); CARBON DIOXIDE 24.8 mmol/L (21-32); CHLORIDE SERUM 109 mmol/L (98-107); CREATININE SERUM 0.6 mg/dL (0.7-1.3); GFR1 > 60 mL/min; GLUCOSE SERUM 79 mg/dL (74-106); MAGNESIUM 1.8 mg/dL (1.8-2.4); PHOSPHOROUS 3.2 mg/dL (2.5-4.9); POTASSIUM SERUM 3.4 mmol/L (3.5-5.1); SODIUM SERUM 146 mmol/L (136-145)
[2018-08-17 07:20] LABS: RED CELL DISTRIBUTION WIDTH 14.9 % (11.5-14.5)
[2018-08-17 10:00] VITALS: BP 139/79
[2018-08-17 17:10] VITALS: BP 129/82
[2018-08-17 21:21] VITALS: BP 131/83
[2018-08-18 05:17] VITALS: BP 124/73
[2018-08-18 07:04] LABS: BASOPHIL % 0.4 % (0-2); PLATELET COUNT 181 x10^3mcL (130-400)
[2018-08-18 07:08] LABS: RED CELL DISTRIBUTION WIDTH 15.1 % (11.5-14.5)
[2018-08-18 07:10] LABS: CALCIUM 8.8 mg/dL (8.5-10.1); CARBON DIOXIDE 31.1 mmol/L (21-32); CHLORIDE SERUM 105 mmol/L (98-107); CREATININE SERUM 0.5 mg/dL (0.7-1.3); GFR1 > 60 mL/min; GLUCOSE SERUM 79 mg/dL (74-106); POTASSIUM SERUM 3.8 mmol/L (3.5-5.1); SODIUM SERUM 145 mmol/L (136-145)
[2018-08-18 13:30] VITALS: BP 116/62
[2018-08-18] MEDS ORDERED: LIPI20 PO (15:44)
== END 2018-08-18 17:46 | disposition home or self-care (01) | DRG 203 ==
LOC: ED 19:51 → DU 23:14
PROVIDERS: Emergency Medicine; Internal Medicine
DX: M94.0 Chondrocostal junction syndrome [Tietze] (principal); G92 Toxic encephalopathy; E83.51 Hypocalcemia; E83.42 Hypomagnesemia; E87.6 Hypokalemia; I10 Essential (primary) hypertension; G89.29 Other chronic pain; E78.5 Hyperlipidemia, unspecified; J45.909 Unspecified asthma, uncomplicated; D64.9 Anemia, unspecified; F10.129 Alcohol abuse with intoxication, unspecified; R56.9 Unspecified convulsions; K21.9 Gastro-esophageal reflux disease without esophagitis; Z86.11 Personal history of tuberculosis; Z90.2 Acquired absence of lung [part of]; Z85.46 Personal history of malignant neoplasm of prostate; Z86.73 Personal history of transient ischemic attack (TIA), and cerebral infarction without residual deficits; Y92.018 Other place in single-family (private) house as the place of occurrence of the external cause; Z87.01 Personal history of pneumonia (recurrent); Z80.9 Family history of malignant neoplasm, unspecified; Z82.3 Family history of stroke; Z88.6 Allergy status to analgesic agent
CPT/HCPCS: 83880; 84439; 85378; A9500; G0480; J2270; J2405; J2785; J3475; J7030; Q0092

== ENCOUNTER 2018-08-22 11:49 | Emergency (ER) | payer OTHER ==
[~2018-08-22] VITALS: Ht 177.8 cm; Wt 61.2 kg
[~2018-08-22 11:49] MED LIST changes: +LIPI20 PO; +PHARMASSURE FO0.4 MG PO; +VITAMIN B122500 MC2 PO
[2018-08-22 12:35] VITALS: Ht 177.8 cm; Wt 61.2 kg
[2018-08-22 14:31] VITALS: BP 126/76
== END 2018-08-22 14:31 | disposition home or self-care (01) ==
LOC: ED 11:49
DX: S20.211A Contusion of right front wall of thorax, initial encounter (principal); J45.909 Unspecified asthma, uncomplicated; I10 Essential (primary) hypertension; Z86.73 Personal history of transient ischemic attack (TIA), and cerebral infarction without residual deficits; Z98.890 Other specified postprocedural states; Z88.6 Allergy status to analgesic agent; W01.0XXA Fall on same level from slipping, tripping and stumbling without subsequent striking against object, initial encounter; Y93.89 Activity, other specified; Y92.89 Other specified places as the place of occurrence of the external cause; Y99.8 Other external cause status
CPT/HCPCS: J1885

== ENCOUNTER 2018-08-26 12:33 | Emergency (ER) | payer OTHER ==
[~2018-08-26] VITALS: Ht 180.3 cm; Wt 81.6 kg
[2018-08-26 12:54] VITALS: BP 144/87
[2018-08-26 13:10] LABS: CALCIUM 7.9 mg/dL (8.5-10.1); CARBON DIOXIDE 24.4 mmol/L (21-32); CHLORIDE SERUM 103 mmol/L (98-107); CREATININE SERUM 0.7 mg/dL (0.7-1.3); GFR1 > 60 mL/min; GLUCOSE SERUM 108 mg/dL (74-106); POTASSIUM SERUM 3.4 mmol/L (3.5-5.1); SODIUM SERUM 137 mmol/L (136-145)
[2018-08-26 13:11] LABS: BASOPHIL % 0.2 % (0-2); PLATELET COUNT 212 x10^3mcL (130-400)
[2018-08-26 13:12] LABS: RED CELL DISTRIBUTION WIDTH 14.7 % (11.5-14.5)
[2018-08-26 13:16] LABS: ALBUMIN 3.6 g/dL (3.4-5.0); ALKALINE PHOSPHATASE 117 U/L (46-116); ALT/SGPT 31 U/L (16-63); AST/SGOT 44 U/L (15-37); BILIRUBIN TOTAL 1.2 mg/dL (0.20-1.00); TOTAL PROTEIN, SERUM 7.4 g/dL (6.4-8.2)
== END 2018-08-26 15:38 | disposition home or self-care (01) ==
LOC: ED 12:33
PROVIDERS: Emergency Medicine
DX: F10.129 Alcohol abuse with intoxication, unspecified (principal); R07.81 Pleurodynia; I10 Essential (primary) hypertension; J45.909 Unspecified asthma, uncomplicated; Z88.6 Allergy status to analgesic agent; Z86.73 Personal history of transient ischemic attack (TIA), and cerebral infarction without residual deficits; Y90.8 Blood alcohol level of 240 mg/100 ml or more
CPT/HCPCS: 36415; G0480; Q0092

== ENCOUNTER 2018-08-29 11:48 | Emergency (ER) | payer OTHER ==
[~2018-08-29] VITALS: Ht 170.2 cm; Wt 59.9 kg
[2018-08-29 12:01] VITALS: Ht 170.2 cm; Wt 59.9 kg
[2018-08-29 13:17] LABS: BASOPHIL % 0.2 % (0-2); PLATELET COUNT 169 x10^3mcL (130-400); RED CELL DISTRIBUTION WIDTH 14.3 % (11.5-14.5)
[2018-08-29 13:18] LABS: CALCIUM 9.3 mg/dL (8.5-10.1); CARBON DIOXIDE 30.6 mmol/L (21-32); CHLORIDE SERUM 92 mmol/L (98-107); CREATININE SERUM 0.7 mg/dL (0.7-1.3); GFR1 > 60 mL/min; GLUCOSE SERUM 98 mg/dL (74-106); POTASSIUM SERUM 3.2 mmol/L (3.5-5.1); SODIUM SERUM 134 mmol/L (136-145)
[2018-08-29 13:22] LABS: ALBUMIN 4.3 g/dL (3.4-5.0); ALKALINE PHOSPHATASE 141 U/L (46-116); ALT/SGPT 33 U/L (16-63); AST/SGOT 50 U/L (15-37); BILIRUBIN TOTAL 4.9 mg/dL (0.20-1.00); LIPASE 103 IU/L (73-393); TOTAL PROTEIN, SERUM 8.2 g/dL (6.4-8.2)
[2018-08-29 13:22] LABS: UA SPECIFIC GRAVITY 1.015 (1.005-1.035); microscopic required? YES; urine erythrocyte TRACE (NEGATIVE)
[2018-08-29 15:17] VITALS: BP 124/60
== END 2018-08-29 15:17 | disposition home or self-care (01) ==
LOC: ED 11:48
PROVIDERS: Emergency Medicine
DX: K29.00 Acute gastritis without bleeding (principal); E87.6 Hypokalemia; J45.909 Unspecified asthma, uncomplicated; I10 Essential (primary) hypertension; Z86.73 Personal history of transient ischemic attack (TIA), and cerebral infarction without residual deficits; Z88.6 Allergy status to analgesic agent
CPT/HCPCS: G0480; J2405; J3490; J7040; Q0092

== ENCOUNTER 2018-10-26 15:06 | Emergency (ER) | payer OTHER ==
[~2018-10-26] VITALS: Ht 172.7 cm; Wt 64.9 kg
[2018-10-26 15:11] VITALS: Ht 172.7 cm; Wt 64.9 kg
[2018-10-26 17:19] VITALS: BP 145/78
== END 2018-10-26 17:19 | disposition home or self-care (01) ==
LOC: ED 15:06
DX: B34.9 Viral infection, unspecified (principal); J45.909 Unspecified asthma, uncomplicated; I10 Essential (primary) hypertension; Z90.2 Acquired absence of lung [part of]; Z88.6 Allergy status to analgesic agent; Z86.73 Personal history of transient ischemic attack (TIA), and cerebral infarction without residual deficits
CPT/HCPCS: 87804; Q0162

== ENCOUNTER 2018-12-05 17:34 | Emergency (ER) | payer OTHER ==
[2018-12-05 23:29] VITALS: BP 110/66
== END 2018-12-05 23:33 | disposition home or self-care (01) ==
LOC: ED 17:34
DX: G89.29 Other chronic pain (principal); Z76.5 Malingerer [conscious simulation]; Z90.2 Acquired absence of lung [part of]
CPT/HCPCS: 87804; J1885; Q0092

== ENCOUNTER 2018-12-30 19:37 | Emergency (ER) | payer OTHER ==
[~2018-12-30] VITALS: Ht 175.3 cm; Wt 72.6 kg
[2018-12-30 19:50] VITALS: Ht 175.3 cm; Wt 72.6 kg
[2018-12-30 20:34] LABS: BASOPHIL % 1.7 % (0-2); PLATELET COUNT 216 x10^3mcL (130-400)
[2018-12-30 20:45] LABS: CARBON DIOXIDE 27.8 mmol/L (21-32); CHLORIDE SERUM 104 mmol/L (98-107); CREATININE SERUM 0.8 mg/dL (0.7-1.3); GFR1 > 60 mL/min; GLUCOSE SERUM 89 mg/dL (74-106); SODIUM SERUM 141 mmol/L (136-145)
[2018-12-30 20:47] LABS: ALBUMIN 3.6 g/dL (3.4-5.0); ALKALINE PHOSPHATASE 72 U/L (46-116); ALT/SGPT 14 U/L (16-63); AST/SGOT 26 U/L (15-37); BILIRUBIN TOTAL 0.7 mg/dL (0.20-1.00); TOTAL PROTEIN, SERUM 7.1 g/dL (6.4-8.2)
[2018-12-30 22:08] VITALS: BP 114/88
== END 2018-12-30 21:50 | disposition home or self-care (01) ==
LOC: ED 19:37
PROVIDERS: Emergency Medicine
DX: G92 Toxic encephalopathy (principal); F10.129 Alcohol abuse with intoxication, unspecified; G89.29 Other chronic pain; R07.89 Other chest pain; I10 Essential (primary) hypertension; J45.909 Unspecified asthma, uncomplicated; Z98.890 Other specified postprocedural states
CPT/HCPCS: 36415; G0480; Q0092

== ENCOUNTER 2019-01-04 17:41 | Inpatient (IN) | payer OTHER ==
[~2019-01-04] VITALS: Ht 177.8 cm; Wt 81.6 kg
[2019-01-04 17:58] VITALS: Ht 177.8 cm; Wt 81.6 kg
[2019-01-04 18:43] LABS: BASOPHIL % 0.3 % (0-2); PLATELET COUNT 260 x10^3mcL (130-400)
[2019-01-04 18:50] LABS: CALCIUM 8.1 mg/dL (8.5-10.1); CARBON DIOXIDE 27.6 mmol/L (21-32); CHLORIDE SERUM 104 mmol/L (98-107); CREATININE SERUM 0.6 mg/dL (0.7-1.3); GFR1 > 60 mL/min; GLUCOSE SERUM 92 mg/dL (74-106); POTASSIUM SERUM 3.8 mmol/L (3.5-5.1); SODIUM SERUM 144 mmol/L (136-145)
[2019-01-04 18:56] LABS: ALKALINE PHOSPHATASE 88 U/L (46-116); ALT/SGPT 20 U/L (16-63); AST/SGOT 26 U/L (15-37); BILIRUBIN TOTAL 0.6 mg/dL (0.20-1.00); TOTAL PROTEIN, SERUM 7.5 g/dL (6.4-8.2)
[2019-01-04 19:55] LABS: MAGNESIUM 1.9 mg/dL (1.8-2.4); PHOSPHOROUS 3.9 mg/dL (2.5-4.9)
[2019-01-04 19:56] LABS: AMPHETAMINE QUAL UR NONE DETECTED (See below)
[2019-01-04 21:26] VITALS: BP 108/73
[2019-01-05 06:15] VITALS: BP 119/69
[2019-01-05 07:07] LABS: BASOPHIL % 0.3 % (0-2); PLATELET COUNT 243 x10^3mcL (130-400); RED CELL DISTRIBUTION WIDTH 15.4 % (11.5-14.5)
[2019-01-05 07:19] LABS: microscopic required? NO
[2019-01-05 07:21] LABS: CALCIUM 8.1 mg/dL (8.5-10.1); CARBON DIOXIDE 30.3 mmol/L (21-32); CHLORIDE SERUM 111 mmol/L (98-107); CREATININE SERUM 0.6 mg/dL (0.7-1.3); GFR1 > 60 mL/min; GLUCOSE SERUM 87 mg/dL (74-106); PHOSPHOROUS 3.3 mg/dL (2.5-4.9); SODIUM SERUM 150 mmol/L (136-145)
[2019-01-05 08:04] LABS: UA SPECIFIC GRAVITY <=1.005 (1.005-1.035); urine erythrocyte NEGATIVE (NEGATIVE)
[2019-01-05 09:56] VITALS: BP 107/68
[2019-01-05 13:32] VITALS: BP 112/77
[2019-01-05 16:37] VITALS: BP 131/66
[2019-01-05 21:29] VITALS: BP 111/63
[2019-01-06 06:26] VITALS: BP 135/85
[2019-01-06 07:16] LABS: BASOPHIL % 0.3 % (0-2); PLATELET COUNT 215 x10^3mcL (130-400); RED CELL DISTRIBUTION WIDTH 15.1 % (11.5-14.5)
[2019-01-06 07:26] LABS: CALCIUM 8.1 mg/dL (8.5-10.1); CARBON DIOXIDE 29.1 mmol/L (21-32); CHLORIDE SERUM 105 mmol/L (98-107); CREATININE SERUM 0.6 mg/dL (0.7-1.3); GFR1 > 60 mL/min; GLUCOSE SERUM 99 mg/dL (74-106); POTASSIUM SERUM 3.8 mmol/L (3.5-5.1); SODIUM SERUM 140 mmol/L (136-145)
[2019-01-06 09:07] VITALS: BP 122/69
[2019-01-06 12:11] VITALS: BP 122/69
== END 2019-01-06 13:21 | disposition home or self-care (01) | DRG 52 ==
LOC: ED 17:41 → DU 19:34 → MU 01-06 10:12
PROVIDERS: Emergency Medicine; ADMIT Internal Medicine
DX: G92 Toxic encephalopathy (principal); E87.0 Hyperosmolality and hypernatremia; E83.51 Hypocalcemia; R45.851 Suicidal ideations; F22 Delusional disorders; R56.9 Unspecified convulsions; F10.229 Alcohol dependence with intoxication, unspecified; I10 Essential (primary) hypertension; J98.11 Atelectasis; Y90.0 Blood alcohol level of less than 20 mg/100 ml; J45.909 Unspecified asthma, uncomplicated; Z86.11 Personal history of tuberculosis; Z90.2 Acquired absence of lung [part of]; Z86.73 Personal history of transient ischemic attack (TIA), and cerebral infarction without residual deficits; Z85.46 Personal history of malignant neoplasm of prostate; Z87.01 Personal history of pneumonia (recurrent); Z80.9 Family history of malignant neoplasm, unspecified; Z82.3 Family history of stroke; Z72.89 Other problems related to lifestyle; Z23 Encounter for immunization
CPT/HCPCS: 90658; G0480; J1885; J2270; J7030

== ENCOUNTER 2019-01-19 08:20 | Emergency (ER) | payer OTHER ==
[~2019-01-19] VITALS: Ht 177.8 cm; Wt 63.5 kg
[2019-01-19 08:31] VITALS: Ht 177.8 cm; Wt 63.5 kg
[2019-01-19 09:03] LABS: PLATELET COUNT 226 x10^3mcL (130-400)
[2019-01-19 09:06] LABS: RED CELL DISTRIBUTION WIDTH 15.3 % (11.5-14.5)
[2019-01-19 09:42] LABS: BAND NEUTROPHIL 10 % (0-10); BASOPHIL 0 % (0-2); MONOCYTE 4 % (0-7); SEGMENTED NEUTROPHILS 77 % (37-75); rbc morphology (normal/abnorm) ABNORMAL (NORMAL)
[2019-01-19 09:43] LABS: PLATELET MORPHOLOGY PLATELETS NORMAL
[2019-01-19 09:45] LABS: CALCIUM 8.4 mg/dL (8.5-10.1); CARBON DIOXIDE 27.7 mmol/L (21-32); CHLORIDE SERUM 104 mmol/L (98-107); CREATININE SERUM 0.6 mg/dL (0.7-1.3); GFR1 > 60 mL/min; GLUCOSE SERUM 90 mg/dL (74-106); POTASSIUM SERUM 3.8 mmol/L (3.5-5.1); SODIUM SERUM 141 mmol/L (136-145)
[2019-01-19 09:49] LABS: ALBUMIN 3.9 g/dL (3.4-5.0); ALKALINE PHOSPHATASE 78 U/L (46-116); ALT/SGPT 18 U/L (16-63); AST/SGOT 23 U/L (15-37); BILIRUBIN TOTAL 1.8 mg/dL (0.20-1.00); TOTAL PROTEIN, SERUM 7.1 g/dL (6.4-8.2)
[2019-01-19 12:11] LABS: AMPHETAMINE QUAL UR NONE DETECTED (See below)
[2019-01-19 14:10] LABS: microscopic required? YES; urine erythrocyte TRACE (NEGATIVE)
[2019-01-19 15:08] VITALS: BP 129/71
== END 2019-01-19 15:08 | disposition home or self-care (01) ==
LOC: ED 08:20
PROVIDERS: Specialist
DX: F10.129 Alcohol abuse with intoxication, unspecified (principal); D72.829 Elevated white blood cell count, unspecified; R05 Cough; J45.909 Unspecified asthma, uncomplicated; I10 Essential (primary) hypertension; Z86.73 Personal history of transient ischemic attack (TIA), and cerebral infarction without residual deficits; Z98.890 Other specified postprocedural states
CPT/HCPCS: 87804; J2405; J7030; Q0092

== ENCOUNTER 2019-02-01 15:31 | Emergency (ER) | payer OTHER ==
[~2019-02-01] VITALS: Ht 177.8 cm; Wt 63.5 kg
[2019-02-01 15:54] VITALS: Ht 177.8 cm; Wt 63.5 kg
[2019-02-01 16:52] LABS: BASOPHIL % 0.6 % (0-2); PLATELET COUNT 285 x10^3mcL (130-400)
[2019-02-01 16:54] LABS: RED CELL DISTRIBUTION WIDTH 15.4 % (11.5-14.5)
[2019-02-01 17:01] LABS: CALCIUM 8.4 mg/dL (8.5-10.1); CARBON DIOXIDE 28.5 mmol/L (21-32); CHLORIDE SERUM 100 mmol/L (98-107); CREATININE SERUM 0.6 mg/dL (0.7-1.3); GFR1 > 60 mL/min; GLUCOSE SERUM 83 mg/dL (74-106); POTASSIUM SERUM 3.5 mmol/L (3.5-5.1); SODIUM SERUM 139 mmol/L (136-145)
[2019-02-01 17:17] LABS: ALBUMIN 3.9 g/dL (3.4-5.0); ALKALINE PHOSPHATASE 67 U/L (46-116); ALT/SGPT 21 U/L (16-63); AST/SGOT 30 U/L (15-37); BILIRUBIN TOTAL 1.7 mg/dL (0.20-1.00); TOTAL PROTEIN, SERUM 6.9 g/dL (6.4-8.2)
[2019-02-01 17:28] LABS: AMPHETAMINE QUAL UR NONE DETECTED (See below)
[2019-02-02 13:01] VITALS: BP 135/82
== END 2019-02-02 13:01 | disposition home or self-care (01) ==
LOC: ED 15:31
PROVIDERS: Emergency Medicine
DX: F10.129 Alcohol abuse with intoxication, unspecified (principal); R45.851 Suicidal ideations; F31.9 Bipolar disorder, unspecified; J45.909 Unspecified asthma, uncomplicated; I10 Essential (primary) hypertension
CPT/HCPCS: 36415; G0480; J1885

== ENCOUNTER 2019-03-07 10:51 | Emergency (ER) | payer OTHER ==
[~2019-03-07] VITALS: Ht 177.8 cm; Wt 77.1 kg
[2019-03-07 11:00] VITALS: Ht 177.8 cm; Wt 77.1 kg
[2019-03-07 17:10] VITALS: BP 124/84
== END 2019-03-07 17:10 | disposition home or self-care (01) ==
LOC: ED 10:51
DX: F10.129 Alcohol abuse with intoxication, unspecified (principal); I10 Essential (primary) hypertension; J45.909 Unspecified asthma, uncomplicated; Z86.73 Personal history of transient ischemic attack (TIA), and cerebral infarction without residual deficits

== ENCOUNTER 2019-03-15 13:34 | Emergency (ER) | payer OTHER ==
[~2019-03-15] VITALS: Ht 180.3 cm; Wt 69.9 kg
[2019-03-15 13:57] VITALS: Ht 180.3 cm; Wt 69.9 kg
[2019-03-15 15:30] VITALS: BP 106/57
== END 2019-03-15 15:30 | disposition home or self-care (01) ==
LOC: ED 13:34
DX: S00.81XA Abrasion of other part of head, initial encounter (principal); R55 Syncope and collapse; J45.909 Unspecified asthma, uncomplicated; I10 Essential (primary) hypertension; Z86.73 Personal history of transient ischemic attack (TIA), and cerebral infarction without residual deficits; W22.03XA Walked into furniture, initial encounter; Y93.89 Activity, other specified; Y92.89 Other specified places as the place of occurrence of the external cause; Y99.8 Other external cause status

== ENCOUNTER 2019-03-20 20:14 | Emergency (ER) | payer OTHER ==
[~2019-03-20] VITALS: Ht 177.8 cm; Wt 81.6 kg
[2019-03-20 20:24] VITALS: Ht 177.8 cm; Wt 81.6 kg
[2019-03-20 23:07] VITALS: BP 117/81
== END 2019-03-21 01:02 | disposition home or self-care (01) ==
LOC: ED 20:14
DX: S09.8XXA Other specified injuries of head, initial encounter (principal); F10.129 Alcohol abuse with intoxication, unspecified; J45.909 Unspecified asthma, uncomplicated; I10 Essential (primary) hypertension; Z86.73 Personal history of transient ischemic attack (TIA), and cerebral infarction without residual deficits; W18.39XA Other fall on same level, initial encounter; Y93.89 Activity, other specified; Y92.89 Other specified places as the place of occurrence of the external cause; Y99.8 Other external cause status; Y90.0 Blood alcohol level of less than 20 mg/100 ml

== ENCOUNTER 2019-03-29 12:27 | Emergency (ER) | payer OTHER ==
[~2019-03-29] VITALS: Ht 177.8 cm; Wt 68.0 kg
[2019-03-29 12:38] VITALS: Ht 177.8 cm; Wt 68.0 kg
[2019-03-29 19:13] VITALS: BP 122/78
== END 2019-03-29 19:13 | disposition home or self-care (01) ==
LOC: ED 12:27
DX: S09.8XXA Other specified injuries of head, initial encounter (principal); F10.129 Alcohol abuse with intoxication, unspecified; X58.XXXA Exposure to other specified factors, initial encounter; Y93.89 Activity, other specified; Y92.89 Other specified places as the place of occurrence of the external cause; Y99.8 Other external cause status
CPT/HCPCS: J7030

== ENCOUNTER 2019-05-30 16:30 | Emergency (ER) | payer OTHER ==
[~2019-05-30] VITALS: Ht 177.8 cm; Wt 81.2 kg
[2019-05-30 16:53] VITALS: Ht 177.8 cm; Wt 81.2 kg
[2019-05-30 18:32] LABS: BASOPHIL % 0.3 % (0-2); PLATELET COUNT 220 x10^3mcL (130-400)
[2019-05-30 18:37] LABS: RED CELL DISTRIBUTION WIDTH 17.4 % (11.5-14.5)
[2019-05-30 18:40] LABS: CALCIUM 9.1 mg/dL (8.5-10.1); CARBON DIOXIDE 29.2 mmol/L (21-32); CHLORIDE SERUM 104 mmol/L (98-107); CREATININE SERUM 0.7 mg/dL (0.7-1.3); GFR1 > 60 mL/min; GLUCOSE SERUM 92 mg/dL (74-106); POTASSIUM SERUM 3.6 mmol/L (3.5-5.1); SODIUM SERUM 143 mmol/L (136-145)
[2019-05-30 18:45] LABS: ALBUMIN 3.6 g/dL (3.4-5.0); ALKALINE PHOSPHATASE 71 U/L (46-116); ALT/SGPT 25 U/L (16-63); AST/SGOT 38 U/L (15-37); TOTAL PROTEIN, SERUM 6.8 g/dL (6.4-8.2)
[2019-05-30 20:58] VITALS: BP 139/93
== END 2019-05-30 20:58 | disposition home or self-care (01) ==
LOC: ED 16:30
PROVIDERS: Emergency Medicine
DX: T67.5XXA Heat exhaustion, unspecified, initial encounter (principal); R42 Dizziness and giddiness; L55.9 Sunburn, unspecified; I10 Essential (primary) hypertension; Z86.73 Personal history of transient ischemic attack (TIA), and cerebral infarction without residual deficits; X58.XXXA Exposure to other specified factors, initial encounter; Y93.89 Activity, other specified; Y92.89 Other specified places as the place of occurrence of the external cause; Y99.8 Other external cause status
CPT/HCPCS: 36415; J1885

== ENCOUNTER 2019-06-24 17:38 | Emergency (ER) | payer OTHER ==
[~2019-06-24] VITALS: Ht 180.3 cm; Wt 81.6 kg
[2019-06-24 17:40] VITALS: Ht 180.3 cm; Wt 81.6 kg
[2019-06-24 21:03] LABS: BASOPHIL % 0.3 % (0-2); PLATELET COUNT 195 x10^3mcL (130-400); RED CELL DISTRIBUTION WIDTH 16.5 % (11.5-14.5)
[2019-06-24 21:12] LABS: CALCIUM 7.4 mg/dL (8.5-10.1); CARBON DIOXIDE 27.6 mmol/L (21-32); CHLORIDE SERUM 113 mmol/L (98-107); CREATININE SERUM 0.7 mg/dL (0.7-1.3); GFR1 > 60 mL/min; GLUCOSE SERUM 107 mg/dL (74-106); POTASSIUM SERUM 3.3 mmol/L (3.5-5.1); SODIUM SERUM 150 mmol/L (136-145)
[2019-06-24 21:16] LABS: ALBUMIN 3.6 g/dL (3.4-5.0); ALKALINE PHOSPHATASE 65 U/L (46-116); ALT/SGPT 19 U/L (16-63); AST/SGOT 21 U/L (15-37); BILIRUBIN TOTAL 0.64 mg/dL (0.20-1.00); MAGNESIUM 1.9 mg/dL (1.8-2.4); TOTAL PROTEIN, SERUM 6.8 g/dL (6.4-8.2)
[2019-06-25 00:22] VITALS: BP 103/60
== END 2019-06-25 00:22 | disposition home or self-care (01) ==
LOC: ED 17:38
PROVIDERS: Emergency Medicine
DX: F10.129 Alcohol abuse with intoxication, unspecified (principal); Z86.73 Personal history of transient ischemic attack (TIA), and cerebral infarction without residual deficits
CPT/HCPCS: G0480; J3490; J7030; J7050; J8597; Q0092

== ENCOUNTER 2019-07-06 12:58 | Emergency (ER) | payer OTHER ==
[~2019-07-06] VITALS: Ht 180.3 cm; Wt 69.9 kg
[2019-07-06 13:08] VITALS: Ht 180.3 cm; Wt 69.9 kg
[2019-07-06 14:31] LABS: CALCIUM 7.7 mg/dL (8.5-10.1); CARBON DIOXIDE 27.5 mmol/L (21-32); CHLORIDE SERUM 103 mmol/L (98-107); CREATININE SERUM 0.7 mg/dL (0.7-1.3); GFR1 > 60 mL/min; GLUCOSE SERUM 73 mg/dL (74-106); POTASSIUM SERUM 3.5 mmol/L (3.5-5.1); SODIUM SERUM 143 mmol/L (136-145)
[2019-07-06 14:34] LABS: BASOPHIL % 0.4 % (0-2); PLATELET COUNT 267 x10^3mcL (130-400); RED CELL DISTRIBUTION WIDTH 15.7 % (11.5-14.5)
[2019-07-06 14:36] LABS: ALKALINE PHOSPHATASE 97 U/L (46-116); ALT/SGPT 29 U/L (16-63); AST/SGOT 65 U/L (15-37); LIPASE 120 IU/L (73-393); TOTAL PROTEIN, SERUM 7.4 g/dL (6.4-8.2)
[2019-07-06 17:35] VITALS: BP 126/71
== END 2019-07-06 17:35 | disposition home or self-care (01) ==
LOC: ED 12:58
PROVIDERS: Emergency Medicine
DX: F10.129 Alcohol abuse with intoxication, unspecified (principal); J45.909 Unspecified asthma, uncomplicated; I10 Essential (primary) hypertension; Z86.73 Personal history of transient ischemic attack (TIA), and cerebral infarction without residual deficits; Z90.89 Acquired absence of other organs
CPT/HCPCS: G0480; J1885; J7030

== ENCOUNTER 2019-07-31 17:05 | Emergency (ER) | payer OTHER ==
[~2019-07-31] VITALS: Ht 180.3 cm; Wt 68.0 kg
[2019-07-31 17:11] VITALS: Ht 180.3 cm; Wt 68.0 kg
[2019-07-31 17:55] LABS: BASOPHIL % 0.1 % (0-2); PLATELET COUNT 198 x10^3mcL (130-400); RED CELL DISTRIBUTION WIDTH 14.4 % (11.5-14.5)
[2019-07-31 18:04] LABS: CALCIUM 8.1 mg/dL (8.5-10.1); CARBON DIOXIDE 26.6 mmol/L (21-32); CHLORIDE SERUM 106 mmol/L (98-107); CREATININE SERUM 0.8 mg/dL (0.7-1.3); GFR1 > 60 mL/min; GLUCOSE SERUM 88 mg/dL (74-106); POTASSIUM SERUM 3.7 mmol/L (3.5-5.1); SODIUM SERUM 144 mmol/L (136-145)
[2019-07-31 18:11] LABS: ALBUMIN 3.7 g/dL (3.4-5.0); ALKALINE PHOSPHATASE 73 U/L (46-116); ALT/SGPT 15 U/L (16-63); AST/SGOT 29 U/L (15-37); BILIRUBIN TOTAL 0.6 mg/dL (0.20-1.00)
[2019-08-01 00:56] LABS: microscopic required? NO
[2019-08-01 01:11] LABS: UA SPECIFIC GRAVITY 1.025 (1.005-1.035); urine erythrocyte NEGATIVE (NEGATIVE)
[2019-08-01 01:14] LABS: AMPHETAMINE QUAL UR NONE DETECTED (See below)
--- NOTE | 2019-08-01 09:19 | NUR ---
Received report from cage shift manager. Will continue to look for placent.
[2019-08-01 13:10] VITALS: BP 122/77
== END 2019-08-01 13:09 | disposition short-term general hospital (02) ==
LOC: ED 17:05
PROVIDERS: Emergency Medicine
DX: R45.851 Suicidal ideations (principal); F10.129 Alcohol abuse with intoxication, unspecified; I10 Essential (primary) hypertension; Z86.73 Personal history of transient ischemic attack (TIA), and cerebral infarction without residual deficits; Z59.0 Homelessness; J45.909 Unspecified asthma, uncomplicated
CPT/HCPCS: G0480; J3411; J3475; J3490; J7030; Q0162

== ENCOUNTER 2019-08-27 18:19 | Emergency (ER) | payer OTHER ==
[~2019-08-27] VITALS: Ht 170.2 cm; Wt 68.0 kg
[2019-08-27 18:28] VITALS: Ht 170.2 cm; Wt 68.0 kg
[2019-08-27 19:03] LABS: PLATELET COUNT 26 x10^3mcL (130-400); RED CELL DISTRIBUTION WIDTH 15.1 % (11.5-14.5)
[2019-08-27 19:26] LABS: BAND NEUTROPHIL 0 % (0-10); BASOPHIL 0 % (0-2); MONOCYTE 4 % (0-7); SEGMENTED NEUTROPHILS 77 % (37-75)
[2019-08-27 19:28] LABS: PLATELET MORPHOLOGY PLATELETS DECREASED; rbc morphology (normal/abnorm) NORMAL (NORMAL)
[2019-08-27 20:14] LABS: microscopic required? NO
[2019-08-27 20:21] LABS: UA SPECIFIC GRAVITY <=1.005 (1.005-1.035); urine erythrocyte NEGATIVE (NEGATIVE)
[2019-08-27 20:29] LABS: AMPHETAMINE QUAL UR NONE DETECTED (See below)
[2019-08-27 20:58] LABS: ALBUMIN 4.1 g/dL (3.4-5.0); ALKALINE PHOSPHATASE 67 U/L (46-116); ALT/SGPT 26 U/L (16-63); AST/SGOT 26 U/L (15-37); BILIRUBIN TOTAL 0.74 mg/dL (0.20-1.00); CALCIUM 8.2 mg/dL (8.5-10.1); CHLORIDE SERUM 105 mmol/L (98-107); CHOLESTEROL 155 mg/dL (<200); CREATININE SERUM 0.7 mg/dL (0.7-1.3); GFR1 > 60 mL/min; GLUCOSE SERUM 88 mg/dL (74-106); HDL CHOLESTEROL 60 mg/dL (40-60); LIPASE 170 IU/L (73-393); MAGNESIUM 1.8 mg/dL (1.8-2.4); POTASSIUM SERUM 3.1 mmol/L (3.5-5.1); SODIUM SERUM 142 mmol/L (136-145); T4(THYROXINE) 8.9 ug/dL (4.7-13.3); TOTAL PROTEIN, SERUM 7.2 g/dL (6.4-8.2)
[2019-08-28 06:09] VITALS: BP 101/62
== END 2019-08-28 06:09 | disposition home or self-care (01) ==
LOC: ED 18:19
PROVIDERS: Emergency Medicine
DX: F10.129 Alcohol abuse with intoxication, unspecified (principal); E87.6 Hypokalemia; G93.41 Metabolic encephalopathy; D69.6 Thrombocytopenia, unspecified; J45.909 Unspecified asthma, uncomplicated; I10 Essential (primary) hypertension; Z98.890 Other specified postprocedural states
CPT/HCPCS: 82962; G0480; J3490; J7030; Q0092

== ENCOUNTER 2019-09-06 17:16 | Emergency (ER) | payer OTHER ==
[~2019-09-06] VITALS: Ht 175.3 cm; Wt 81.6 kg
[2019-09-06 17:30] VITALS: Ht 175.3 cm; Wt 81.6 kg
[2019-09-06 18:04] LABS: BASOPHIL % 0.2 % (0-2); PLATELET COUNT 67 x10^3mcL (130-400); RED CELL DISTRIBUTION WIDTH 16.5 % (11.5-14.5)
[2019-09-06 18:06] LABS: AMPHETAMINE QUAL UR NONE DETECTED (See below)
[2019-09-06 18:14] LABS: CALCIUM 8.8 mg/dL (8.5-10.1); CARBON DIOXIDE 31.5 mmol/L (21-32); CHLORIDE SERUM 107 mmol/L (98-107); CREATININE SERUM 0.7 mg/dL (0.7-1.3); GFR1 > 60 mL/min; GLUCOSE SERUM 91 mg/dL (74-106); POTASSIUM SERUM 3.8 mmol/L (3.5-5.1); SODIUM SERUM 145 mmol/L (136-145)
[2019-09-06 18:19] LABS: ALBUMIN 4.1 g/dL (3.4-5.0); ALKALINE PHOSPHATASE 65 U/L (46-116); ALT/SGPT 19 U/L (16-63); AST/SGOT 25 U/L (15-37); BILIRUBIN TOTAL 0.5 mg/dL (0.20-1.00); TOTAL PROTEIN, SERUM 7.7 g/dL (6.4-8.2)
[2019-09-06 18:49] LABS: microscopic required? NO
[2019-09-06 19:03] LABS: UA SPECIFIC GRAVITY <=1.005 (1.005-1.035); urine erythrocyte NEGATIVE (NEGATIVE)
[2019-09-07 06:47] VITALS: BP 109/67
== END 2019-09-07 06:47 | disposition home or self-care (01) ==
LOC: ED 17:16
PROVIDERS: Emergency Medicine
DX: F10.129 Alcohol abuse with intoxication, unspecified (principal); J45.909 Unspecified asthma, uncomplicated; I10 Essential (primary) hypertension; Z86.73 Personal history of transient ischemic attack (TIA), and cerebral infarction without residual deficits; Y90.8 Blood alcohol level of 240 mg/100 ml or more
CPT/HCPCS: 36415; G0480

== ENCOUNTER 2019-09-23 13:42 | Inpatient (IN) | payer OTHER ==
[~2019-09-23] VITALS: Ht 167.6 cm; Wt 73.5 kg
[2019-09-23 13:42] VITALS: Ht 167.6 cm; Wt 73.5 kg
--- NOTE | 2019-09-23 13:51 | NUR ---
UPON ARRIVAL PT IS AWAKE, ALERT AND VERBAL, MAKING COMPLETE STATEMENTS. PERRLA AND PT RESP ARE E/U/ NO FURTHER ASSESSMENT CONDUCTED AT THIS TIME PT STATED "GET OUT, I NEED TO PRAY". PT MADE AWARE THAT HE WILL BE GIVEN 5 MIN AND THEN WILL NEED TO CONTINUE WITH ASSESSMENT. PT STATES "THAT IS PLENTY OF TIME". CURTAIN LEFT OPEN, AND PT VISIBLE TO NURSING STATION. PER EMS, PT WAS AT HOME AND FAMILY CALLED 911 FOR PT WAS NOT RESPONDING TO THEM. UPON ARRIVAL, PT STATED HAD BEEN DRINKING. THERE WAS AN EMPTY BOTTLE OF NORCO AT BEDSIDE. PT DENIES TAKING NORCO AT THIS TIME. PUPILS ARE NOT DILATED. PT WAS MAKING STATEMENTS AT HOME SAYING, "I DONT WANT TO BE HERE ANYMORE", "I SHOULD BE UP THERE, I DONT WANT TO LIVE". LILIA ROWELL AT HOSPITAL TO WRITE UP [id number].
--- NOTE | 2019-09-23 14:10 | NUR ---
REPORT RECEIVED FROM SAM CAMACHO, PRIMARY RN, I WILL BE RESUMING CARE OF PT AT THIS TIME TO RELIEVE HER FOR LUNCH BREAK
--- NOTE | 2019-09-23 14:11 | NUR ---
MD TATUM AT BEDSIDE PERFORMING MSE
--- NOTE | 2019-09-23 14:23 | NUR ---
LAB AT BEDSIDE
--- NOTE | 2019-09-23 14:23 | NUR ---
PT MADE AWARE TO PROVIDE URINE SPECIMEN YENNI, URINAL PLACED AT BEDSIDE
[2019-09-23 14:35] LABS: BASOPHIL % 0.3 % (0-2)
--- NOTE | 2019-09-23 14:35 | NUR ---
EKG IN PROGRESS
[2019-09-23 14:36] LABS: PLATELET COUNT 56 x10^3mcL (130-400); RED CELL DISTRIBUTION WIDTH 15.9 % (11.5-14.5)
[2019-09-23 14:40] LABS: CALCIUM 7.7 mg/dL (8.5-10.1); CARBON DIOXIDE 27.9 mmol/L (21-32); CHLORIDE SERUM 107 mmol/L (98-107); CREATININE SERUM 0.7 mg/dL (0.7-1.3); GFR1 > 60 mL/min; GLUCOSE SERUM 95 mg/dL (74-106); POTASSIUM SERUM 3.3 mmol/L (3.5-5.1); SODIUM SERUM 144 mmol/L (136-145)
--- NOTE | 2019-09-23 14:42 | NUR ---
PT RESTING IN POSITION OF COMFORT, RESPS E/U, VSS, NSR ON CM, NS BOLUS INFUSING EMAR AND MD ORDER, PT CALM AND COOPERATIVE, BED LOCKED IN LOWEST POSITION WITH BOTH GURNEY RAILS UP, SAFETY PRECAUTIONS IN PLACE, PT IN VIEW OF NURSE STATION, WILL CONITNUE TO MONITOR
--- NOTE | 2019-09-23 14:50 | NUR ---
PT REQUESTING FOOD, PER MD TATUM VERBAL ORDERS, OKAY TO ORDER PT LUNCH, LUNCH ORDERED
[2019-09-23 14:56] LABS: FREE T4 1.23 ng/dL (0.76-1.46)
--- NOTE | 2019-09-23 14:58 | NUR ---
SAM CAMACHO, PRIMARY RN, BACK FROM LUNCH, REPORT GIVEN TO RESUME CARE OF PT AT THIS TIME
--- NOTE | 2019-09-23 15:16 | NUR ---
PT RESTING WITH HAT ON FACE, CHEST RISE AND FALL NOTED. IN NO ACUTE DISTRESS AT THIS TIME, CALM
[2019-09-23 15:23] LABS: AMPHETAMINE QUAL UR NONE DETECTED (See below)
--- NOTE | 2019-09-23 17:56 | NUR ---
PT GIVEN DINNER. PT IS CALM BUT STATES HE IS DEPRESSED AND IS WONDERING WHERE THEY ARE GOING TO SEND HIM NOW.
--- NOTE | 2019-09-23 19:10 | NUR ---
PT SLEEPING AT THIS TIME. BREATHING EVEN UNLABORED. PT RESPONDS TO TACTILE STIMULI THEN FALLS BACK SLEEPIN. NO DISTRESS. CONTINUE
--- NOTE | 2019-09-23 19:33 | NUR ---
CARE PASSED TO RN BED FOR CONTINUE OF CARE
--- NOTE | 2019-09-23 21:01 | NUR ---
PT SLEEPING. BREATHING EVEN UNLABORED. NO RESP. DISTRESS. REMAINS ON CM CONTINUE TO MONITOR.
--- NOTE | 2019-09-23 23:00 | NUR ---
PT SLEEPING. BREATHING EVEN UNLABORED. NO DISTRESS.
--- NOTE | 2019-09-24 | NUR ---
PT AWAKE REQUSTING CUP OF WATER AND A BLANKET. PT GIVEN WATER AND BLANKET. PT CALM AND COOOPERATIVE. BREATHING EVEN UNLABORED. NO DISTRESS.
--- NOTE | 2019-09-24 01:34 | NUR ---
EVALUATED BY TELE-PSYCH TO DETERMINE 5150 CONTINUATION. TELE-PSYC RECOMMENDS PT. REMAIN ON 5150. PT SLEEPING. BREATHING EVEN UNALBORED. NO DISTRESS.
--- NOTE | 2019-09-24 03:03 | NUR ---
PT RESTING WITH EYES CLOSED. NO DISTRESS
--- NOTE | 2019-09-24 03:20 | NUR ---
BED READJUSTED PER PATIENT REQUEST
--- NOTE | 2019-09-24 07:10 | NUR ---
REPORT GIVEN TO SASHA GARAGE DOOR SERVICE TECHNICIAN
--- NOTE | 2019-09-24 07:36 | NUR ---
PT AWAKE COOPERTIVE ASKING FOR JUICE AND CRACKERS DENIES WANTING TO HURT HIMSELF AWAITING FOR TELE CONSULT
--- NOTE | 2019-09-24 08:37 | NUR ---
PT CALM WATCHING TV NO DISTRESS
--- NOTE | 2019-09-24 09:45 | NUR ---
PT RELAXED WATCHING TV NO DISTRESS ATE 100% OF HIS BREAKFAST
--- NOTE | 2019-09-24 10:55 | NUR ---
CONT TO WATCH TV
--- NOTE | 2019-09-24 12:00 | NUR ---
PT STS HE FEELS BETTER AND WOULD LIKE TO GO HOME PT WAS ADVISED HE IS ON A HOLD AND NEEDS TO WAIT
--- NOTE | 2019-09-24 13:01 | NUR ---
PT WATCHING TV ATE 100% OF LUNCH
--- NOTE | 2019-09-24 15:36 | NUR ---
PT SITTING UP IN BED WATCHING TV WITH NO SIGNS OF DISTRESS AT THIS TIME.
[2019-09-24 15:47] LABS: MAGNESIUM 1.5 mg/dL (1.8-2.4); PHOSPHOROUS 3.4 mg/dL (2.5-4.9)
--- NOTE | 2019-09-24 16:23 | NUR ---
PT OFF OF UNIT TO RADIOLOGY.
--- NOTE | 2019-09-24 18:57 | NUR ---
PT RESTING IN BED WITH BREATHS EVEN AND UNLABORED WITH NO SIGNS OF DISTRESS.
--- NOTE | 2019-09-24 19:52 | NUR ---
REPORT GIVEN TO FARRUKH
--- NOTE | 2019-09-24 20:20 | NUR ---
RECEIVED PT VIA GURDANE FROM E/D, ACCOMPANIED BY RN. PT A/A/O X 4, CALM, COOPERATIVE TO CARE AT THIS TIME, DENIES S/I OR HALLUCINATION OF ANY SORT; SEIZURE PRECAUTIONS IN PLACE. GENERALIZED WEAKNESS, BUT ABLE TO AMBULATE ON HIS OWN W/ SLOW, STEADY GAIT; S/P FALL 09/23/19; FALL RISK PROTOCOL IN PLACE. ON TELE # 12, SR + ELEVATED T-WAVES, HR 75, DENIES CHEST PAIN OR DISCOMFORT AT THIS TIME. SCD IN PLACE. LUNGS CTAB, CHEST RISING EVENLY, R/A, 97%, C/O L SIDE CHEST (LOBECTOMY SITE) CONSTANT ACHING PAIN 8/10, EXACERBATED BY MOVEMENT, RELIEVED BY REST AND PAIN MEDICATIONS. IV SITE LH 18G, CDI. ORIENTED PT TO ROOM, BED CONTROLS, CALL LIGHT SYSTEM. PADDED SIDE RAILS UP X 2, BED IN LOW POSITION, SITTER BY BEDSIDE. WILL ENDORSE TO DOV [place].
--- NOTE | 2019-09-24 20:37 | NUR ---
Still no beds through the evening for placement, reqached out again to the following facilities. Will keep facility informed of any updates. [facility]/ Darvin - "We are on overflow." [facility]/ Deja - "No male beds, no M-divina beds, please do not fax till am." [facility]/ Brittny - "There are no beds, however please fax intake in the morning after 10am discharges." [facility]/ Gisselle - "We are full this evening, no beds." [facility]/ Kelsy - "We are at capacity tonight."
[2019-09-24 21:00] VITALS: BP 143/90
--- NOTE | 2019-09-25 00:15 | NUR ---
PT RESTING WITH EYES CLOSED. NO SOB ON ROOM AIR. NO FACIAL GRIMACING. NO DISTRESS NOTED. SITTER AT BEDSIDE. WILL CONTINUE TO MONITOR.
--- NOTE | 2019-09-25 05:13 | NUR ---
There are no beds at the following facilities , Fransico jean- Jaleel Hylton- Robel will endorsed to frank shift to continue to look for beds.
[2019-09-25 05:26] VITALS: BP 134/94
--- NOTE | 2019-09-25 06:07 | NUR ---
PT RESTED IN LONG INTERVALS THROUGHOUT SHIFT. BREATHING EVEN AND UNLABORED ON ROOM AIR. C/O SHARP PAIN TO LEFT SIDE RIB CAGE AREA /10. MEDICATED WITH NORCO X1. NO SEIZURES NOTED DURING SHIFT. SIDE RAIL PADS IN PLACE. IV TO LEFT HAND, NS INFUSING. SAFETY MEASURES MAINTAINED. ALL NEEDS ATTENDED TO. DENIES HAVING THOUGHTS OF HARMING SELF AT THIS TIME. SITTER AT BEDSIDE. WILL CONTINUE TO MONITOR AND ENDORSE CARE TO DAY SHIFT RN.
[2019-09-25 06:17] LABS: BASOPHIL % 0.3 % (0-2)
[2019-09-25 06:43] LABS: PLATELET COUNT 29 x10^3mcL (130-400)
--- NOTE | 2019-09-25 07:35 | NUR ---
RECEIVED HAND OFF REPORT FROM NIGHT NURSE. PATIENT IS AWAKE AND ALERT, DENIES HI/SI, DENIES PAIN. CALM AND COOPERATIVE AT THIS TIME. SITTING IN ROOM. PATIENT REPORTS THAT DR CALI ROUNDED THIS MORNING, AWAITING CONSULTATION FROM DR HART. LUNG SOUNDS CTA ON ROOM AIR. TELE 12 PRESENT ON CHEST. BOWELSOUNDS ACTIVE, NO EDEMA NOTED. NS @100ML/H RUNNING TO LEFT HAND. CALL LIGHT WITHIN REACH WILL CONTINUE TO MONITOR
[2019-09-25 07:44] VITALS: BP 134/94
--- NOTE | 2019-09-25 08:20 | NUR ---
Received report fromPM shift. Will continue to locate placement for Pt
[2019-09-25 09:06] LABS: ALBUMIN 3.2 g/dL (3.4-5.0); BILIRUBIN DIRECT 0.29 mg/dL (0.0-0.2); BILIRUBIN TOTAL 1.5 mg/dL (0.20-1.00); TOTAL PROTEIN, SERUM 5.7 g/dL (6.4-8.2)
[2019-09-25 09:17] LABS: UA SPECIFIC GRAVITY <=1.005 (1.005-1.035); microscopic required? YES; urine erythrocyte 1+ (NEGATIVE)
[2019-09-25 10:12] LABS: CALCIUM 8.8 mg/dL (8.5-10.1); CARBON DIOXIDE 25.8 mmol/L (21-32); CHLORIDE SERUM 106 mmol/L (98-107); CREATININE SERUM 0.7 mg/dL (0.7-1.3); GFR1 > 60 mL/min; GLUCOSE SERUM 108 mg/dL (74-106); MAGNESIUM 1.6 mg/dL (1.8-2.4); PHOSPHOROUS 3.5 mg/dL (2.5-4.9); POTASSIUM SERUM 4.5 mmol/L (3.5-5.1); SODIUM SERUM 142 mmol/L (136-145)
--- NOTE | 2019-09-25 10:30 | NUR ---
PATIENT LAYING SUPINE IN BED, ALERT AND ORIENTED. COMPLAINING OF DULL PAIN TO LEFT SIDE OF CHEST, 6/10, REQUESTING PAIN MEDICATION. ADMINSITERED NORCO PRN ALONG WITH MEDICATIONS PER DEC. ENCOURAGED AMBULATION AND POSITION CHANGES. CALL LIGHT WITHIN REACH, SITTER IN ROOM. WILL CONTINUE TO MONITOR
--- NOTE | 2019-09-25 14:19 | NUR ---
Called the following facilities: [facility] s/w Aleena no beds [facility] s/w Nohemy no beds [facility] s/w Jamari packet fax for review [facility] s/w Berna packet fax for review [facility] s/w Brittny no beds
--- NOTE | 2019-09-25 14:51 | NUR ---
PATIENT IV LEAKING AND PAIN PRESENT WHEN FLUSHING. REMOVED IV FROM LEFT HAND. CATH INTACT. [facility] STUDENT DESIRAE TO ATTEMPT IV WITH INSTRUCTOR
--- NOTE | 2019-09-25 15:45 | NUR ---
NEW IV STARTED BY [facility] STUDENT, CARLO, WITH PROFESSOR RUIZ. 22G TO LEFT FOREARM. FLUSHING WELL. NEW ORDER ENTERED FROM DR CALI FOR PATIENT TO BE ABLE TO SHOWER.
--- NOTE | 2019-09-25 16:13 | NUR ---
Packet fax to [facility] for review
--- NOTE | 2019-09-25 16:28 | NUR ---
COMPLAINING OF PAIN TO LEFT SIDE OF CHEST WHERE HIS SURGICAL SCAR IS FROM THE LOBECTOMY. MEDICATED WITH NORCO.
[2019-09-25 17:33] VITALS: BP 140/84
--- NOTE | 2019-09-25 17:39 | NUR ---
PATIENT FINISHED WITH SHOWER. REPLACED TELE 12NON CHEST. NO COMPLAINTS FROM PATIENT AT THIS TIME.
--- NOTE | 2019-09-25 18:27 | NUR ---
PATIENT SITTING UP IN BEDSIDE CHAIR TO EAT DINNER. NO COMPLAINTS. REPORTS BREATHING IS BETTER, PAIN IS CONTROLLED. SITTER IN ROOM, CALL LIGHT WITHIN REACH
--- NOTE | 2019-09-25 19:55 | NUR ---
PT SEEN, RESTING IN BED, ALERT AND ORIENTED, DENIES HEADACHE OR DIZZINESS, SZ PRECAUTION IN PLACE, BREATHING EVEN AND UNLABORED, LUNG SOUNDS CLEAR, ON ROOM AIR WITH NO RESP DISTRESS NOTED, ON TELE#12 NSR, DENIES CHEST PAIN, IV TO LFA, MILD GENERALIZED WEAKNESS, ABLE TO MOVE ALL EXT, ABD SOFT AND FLAT WITH ACTIVE BS, NO BM AT THIS TIME, VOIDING FREELY, NO DISTRESS NOTED, WILL KEEP TO MONITOR.
--- NOTE | 2019-09-25 20:33 | NUR ---
Shift report given, will continue to help facilitate placement
--- NOTE | 2019-09-25 20:49 | NUR ---
DR HART IS HERE AND EVAL PT. PER DR HART THAT PT WILL REMAIN ON 5150 AT THIS TIME, PER DR HART THAT HE WILL COME BACK TO RE-EVAL PT.
[2019-09-25 21:32] VITALS: BP 137/81
--- NOTE | 2019-09-25 22:27 | NUR ---
Refaxed intake paperwork to the following facilities, all state that they will have discharges in AM [facility]/ [facility]/ [facility]/ [facility]/ [facility]/ [facility]/ [facility]
--- NOTE | 2019-09-26 05:04 | NUR ---
no beds through the rhinologist hours but will keep facility updated on any information
--- NOTE | 2019-09-26 05:25 | NUR ---
PT AWAKE AND C/O OF PAIN TO LEFT SIDE BACK PAIN, SLEPT ON AND OFF WHOLE NIGHT, MEDICATED WITH NORCO 10/325 X 2 FOR BACK PAIN WITH GOOD RELIEF, SITTER REAMINS AT BEDSIDE, NO DISTRESS NOTED, WILL KEEP TO MONITOR.
[2019-09-26 06:37] VITALS: BP 115/73
[2019-09-26 07:06] LABS: ALBUMIN 3.6 g/dL (3.4-5.0); ALKALINE PHOSPHATASE 61 U/L (46-116); ALT/SGPT 14 U/L (16-63); AST/SGOT 16 U/L (15-37); CALCIUM 9.3 mg/dL (8.5-10.1); CARBON DIOXIDE 26.8 mmol/L (21-32); CHLORIDE SERUM 103 mmol/L (98-107); CREATININE SERUM 0.6 mg/dL (0.7-1.3); GFR1 > 60 mL/min; GLUCOSE SERUM 168 mg/dL (74-106); SODIUM SERUM 140 mmol/L (136-145); TOTAL PROTEIN, SERUM 7.1 g/dL (6.4-8.2)
--- NOTE | 2019-09-26 07:10 | NUR ---
RECEIVED PT FROM PRESS AND BLOW MACHINE TENDER NURSE. PT RESTING IN BED, AXO4, RESP E/U ON RA. NO ACUTE DISTRESS NOTED AT THIS TIME. ON TELE [address], HR: 109. IV TO LFA W/ NO SIGNS OF INFILTRATION, IVF INFUSING WELL. BED IN LOWEST POSITION AND CALL LIGHT WITHIN REACH. ON 5150 HOLD, SITTER AT BEDSIDE. WILL CONTINUE TO MONITOR.
[2019-09-26 07:36] LABS: BASOPHIL % 0 % (0-2); PLATELET COUNT 37 x10^3mcL (130-400)
--- NOTE | 2019-09-26 07:54 | NUR ---
[facility] still working on Pt. Will continue to call surrounding facilities in attempt to locate placement
--- NOTE | 2019-09-26 10:15 | NUR ---
PT SEEN AT BEDSIDE BY DR. HART. 5150 HOLD RENEWED AT THIS TIME.
--- NOTE | 2019-09-26 10:45 | NUR ---
Fax packet to the following facilities: [facility]
--- NOTE | 2019-09-26 11:42 | NUR ---
PT RESTING IN BED, AOX4, RESP E/U ON RA. PT C/O ABD PAIN TO LUQ RATED 10/10, DENIES N/V. MEDICATED ORDERED PER EMAR, COMFORT MEASURES IMPLEMENTED. BED IN LOWEST POSITION AND CALL LIGHT WITHIN REACH. WILL CONTINUE TO MONITOR.
--- NOTE | 2019-09-26 12:56 | NUR ---
S/W patient's bedside nurse Ryan. He will fax new [phone] for [facility] placement
--- NOTE | 2019-09-26 13:37 | NUR ---
Received new [phone] Fax to the following facilities: [facility] s/w [facility] s/w Jamari [facility] s/w Akilah
--- NOTE | 2019-09-26 13:44 | NUR ---
[facility] s/w Rubi, packet fax for review [facility]/w RITESH Slater no beds
--- NOTE | 2019-09-26 16:31 | NUR ---
PT TRANSFERRED TO ROOM 216-B.
[2019-09-26 16:35] VITALS: BP 108/73
--- NOTE | 2019-09-26 17:49 | NUR ---
PT SITTING UPRIGHT IN BED EATING DINNER, AOX4, RESP E/U ON RA. C/O ABD PAIN RATED 9/10, MEDICATED ORDERED PER EMAR. BED IN LOWEST POSITION AND CALL LIGHT WITHIN REACH. WILL CONTINUE TO MONITOR.
[2019-09-26 18:37] VITALS: BP 116/73
--- NOTE | 2019-09-26 18:45 | NUR ---
PT SEEN AT BEDSIDE, REPORTED RELIEF IN ABD PAIN, RATED 7/10 BUT TRENDING DOWN. BED IN LOWEST POSITION AND CALL LIGHT WITHIN REACH. SITTER AT BEDSIDE. WILL ENDORSE TO ONCOMING NURSE.
--- NOTE | 2019-09-26 19:57 | NUR ---
PT SEEN, RESTING IN BED, ALERT AND ORIENTED, DENIES HEADACHE OR DIZZINESS, SZ PRECAUTION IN PLACE, BREATHING EVEN AND UNLABORED, LUNG SOUNDS CLEAR, ON ROOM AIR WITH NO RESP DISTRESS NOTED, ON AND OFF DRY COUGH, RT PROTOCOL PRN NEEDED, ON TELE#12 NSR, DENIES CHEST PAIN, IV TO LFA, MILD GENERALIZED WEAKNESS, ABLE TO MOVE ALL EXT, ABD SOFT AND FLAT WITH ACTIVE BS, NO BM AT THIS TIME, VOIDING FREELY, 5150 HOLD, SITTER AT BEDSIDE, NO DISTRESS NOTED, WILL KEEP TO MONITOR.
[2019-09-26 20:21] VITALS: BP 100/61
--- NOTE | 2019-09-26 21:16 | NUR ---
Called thefollowing facilities: [facility] s/w Jackie no beds [facility] s/w Jackeline no beds [facility] s/w Jasmin only taking patients in their ER [facility] no answer [facility] s/w, packet on file
--- NOTE | 2019-09-27 05:22 | NUR ---
Ruth díaz aware ther were no vacancy at any of the designated facilities.
[2019-09-27 05:46] VITALS: BP 102/65
--- NOTE | 2019-09-27 06:37 | NUR ---
PT AWAKE AND RESTING IN BED, SLEPT ON AND OFF WHOLE NIGHT, MEDICATED NORCO 10/325 PO X 2 FOR BACK PAIN WITH GOOD RELIEF, AMBULATORY WITH STEADY GAIT, NO DISTRESS NOTED, WILL KEEP TO MONITOR.
--- NOTE | 2019-09-27 07:15 | NUR ---
BEDSIDE HANDOFF REPORT GIVEN TO ERIC-DOV, ALL QUESTIONS ANSWERED AND CONCERNS ADDRESSED. SITTER AT BEDSIDE, PT AWAKE AND RESTING IN BED.
--- NOTE | 2019-09-27 07:50 | NUR ---
RECIEVED PT IN BED. ASSESSED AND DOCUMENTED. DENIES ANY PAIN THIS TIME. STABLE. ON 5150 HOLD, SITTER AT BEDSIDE. NO SUICIDAL IDEATION THIS TIME. SAFTEY PRECAUTIONS ARE IN PLACE. WILL MONITOR.
[2019-09-27 08:40] VITALS: BP 98/56
--- NOTE | 2019-09-27 08:46 | NUR ---
Received report from manufacturing shift supervisor. There are no beds at this time. [facility] still working on placement.
--- NOTE | 2019-09-27 12:16 | NUR ---
Packet re-faxed to Jeanine at [facility] for review.
[2019-09-27 12:30] VITALS: BP 128/80
--- NOTE | 2019-09-27 12:38 | NUR ---
PT C/O BACK PAIN AND REQUESTED FOR NORCO AND GIVEN AT 1138 AND REASSESSED NOW, PT SAID HE DOESNOT HAVE ANY PAIN ANYMORE THIS TIME.
--- NOTE | 2019-09-27 12:40 | NUR ---
CHARGE NURSE ARTHUR REQUESTED TO TALK TO SENIOR HOUSEKEEPER TAMICA FROM [facility], SHE ASKED PT'S INFORMATION AND GIVEN SHE REQUESTED. SHE SAID SHE WILL THEIR NURSE AND WILL CALL ME BACK.
--- NOTE | 2019-09-27 13:25 | NUR ---
TAMICA METAL ANNEALER CALLED BACK FROM [facility] AND INFORMED THEY ARE ACCEPTING THE PT. TRY TO CALL SAWYER HELPER FLORENCE, NOT REACHING THIS TIME. WILL TRY TO CALL AGAIN. INFORMED CHARGE NURSE ABOUT EVERYTHING.
--- NOTE | 2019-09-27 14:08 | NUR ---
Called [facility], s/w House SUP Nohemy. No beds.
--- NOTE | 2019-09-27 14:09 | NUR ---
Called [facility] s/w Quyen. No beds.
--- NOTE | 2019-09-27 14:10 | NUR ---
Called [facility] s/w Gwendolyn. No beds at this time. Possible discharges later.
[2019-09-27 14:49] VITALS: BP 128/80
--- NOTE | 2019-09-27 15:35 | NUR ---
[facility] CAME TO PLASTIC CUTTER PT. IV REMOVED AND DRESSING APPLIED. TELE REMOVED AND RETURNED. PT DENIES ANY PAIN. STABLE. V/S STABLE. TRANSFER PACKET GIVEN TO [facility]. PT AGREED AND SIGNED DC PAPER. PT TRANSFERED TO [facility].
== END 2019-09-27 15:45 | DRG 52 ==
LOC: ED 13:42 → MU 09-24 14:00 → DU 09-24 14:00
PROVIDERS: Emergency Medicine; ADMIT Internal Medicine
DX: G92 Toxic encephalopathy (principal); R45.851 Suicidal ideations; J45.901 Unspecified asthma with (acute) exacerbation; F10.129 Alcohol abuse with intoxication, unspecified; F32.9 Major depressive disorder, single episode, unspecified; Y90.0 Blood alcohol level of less than 20 mg/100 ml; G40.909 Epilepsy, unspecified, not intractable, without status epilepticus; Z90.2 Acquired absence of lung [part of]; Z68.26 Body mass index [BMI] 26.0-26.9, adult; Z87.891 Personal history of nicotine dependence; Z86.73 Personal history of transient ischemic attack (TIA), and cerebral infarction without residual deficits; Z82.3 Family history of stroke
CPT/HCPCS: 82962; 84439; G0378; G0480; J2920; J3475; J7030; J7512; J7620; Q0092

== ENCOUNTER 2019-10-05 16:40 | Emergency (ER) | payer OTHER ==
[~2019-10-05] VITALS: Ht 182.9 cm; Wt 81.6 kg
[2019-10-05 17:04] VITALS: Ht 182.9 cm; Wt 81.6 kg
[2019-10-06 06:27] VITALS: BP 122/70
== END 2019-10-06 06:27 | disposition home or self-care (01) ==
LOC: ED 16:40
DX: E16.2 Hypoglycemia, unspecified (principal); J45.909 Unspecified asthma, uncomplicated; I10 Essential (primary) hypertension
CPT/HCPCS: 82962

== ENCOUNTER 2019-10-06 13:32 | Emergency (ER) | payer OTHER ==
[~2019-10-06] VITALS: Ht 177.8 cm; Wt 72.1 kg
[2019-10-06 13:47] VITALS: Ht 177.8 cm; Wt 72.1 kg
[2019-10-06 18:05] VITALS: BP 105/65
== END 2019-10-06 18:05 | disposition home or self-care (01) ==
LOC: ED 13:32
DX: F10.129 Alcohol abuse with intoxication, unspecified (principal); G89.29 Other chronic pain; R07.89 Other chest pain; J45.909 Unspecified asthma, uncomplicated; I10 Essential (primary) hypertension; Z98.890 Other specified postprocedural states; Z90.2 Acquired absence of lung [part of]

== ENCOUNTER 2019-10-09 12:51 | Emergency (ER) | payer OTHER ==
[~2019-10-09] VITALS: Ht 182.9 cm; Wt 85.3 kg
[2019-10-09 13:15] VITALS: Ht 182.9 cm; Wt 85.3 kg
[2019-10-09 16:21] VITALS: BP 125/74
== END 2019-10-09 16:21 | disposition home or self-care (01) ==
LOC: ED 12:51
DX: S20.212A Contusion of left front wall of thorax, initial encounter (principal); S20.211A Contusion of right front wall of thorax, initial encounter; J45.909 Unspecified asthma, uncomplicated; I10 Essential (primary) hypertension; Z86.73 Personal history of transient ischemic attack (TIA), and cerebral infarction without residual deficits; W01.0XXA Fall on same level from slipping, tripping and stumbling without subsequent striking against object, initial encounter; Y93.89 Activity, other specified; Y92.89 Other specified places as the place of occurrence of the external cause; Y99.8 Other external cause status

== ENCOUNTER 2019-10-11 10:44 | Emergency (ER) | payer OTHER ==
[~2019-10-11] VITALS: Ht 177.8 cm; Wt 65.8 kg
[2019-10-11 10:50] VITALS: Ht 177.8 cm; Wt 65.8 kg
[2019-10-11 11:52] LABS: BASOPHIL % 0.3 % (0-2)
[2019-10-11 12:00] LABS: PLATELET COUNT 61 x10^3mcL (130-400); RED CELL DISTRIBUTION WIDTH 15.2 % (11.5-14.5)
[2019-10-11 12:22] LABS: CARBON DIOXIDE 25.6 mmol/L (21-32); CHLORIDE SERUM 100 mmol/L (98-107); CREATININE SERUM 0.6 mg/dL (0.7-1.3); GFR1 > 60 mL/min; GLUCOSE SERUM 77 mg/dL (74-106); POTASSIUM SERUM 4.5 mmol/L (3.5-5.1); SODIUM SERUM 138 mmol/L (136-145)
[2019-10-11 12:27] LABS: ALBUMIN 3.7 g/dL (3.4-5.0); ALKALINE PHOSPHATASE 76 U/L (46-116); ALT/SGPT 54 U/L (16-63); AST/SGOT 57 U/L (15-37); BILIRUBIN TOTAL 2.1 mg/dL (0.20-1.00); LIPASE 90 IU/L (73-393); TOTAL PROTEIN, SERUM 6.7 g/dL (6.4-8.2)
[2019-10-11 14:41] LABS: UA SPECIFIC GRAVITY 1.025 (1.005-1.035); microscopic required? YES; urine erythrocyte 1+ (NEGATIVE)
[2019-10-11 14:48] VITALS: BP 120/73
== END 2019-10-11 14:48 | disposition home or self-care (01) ==
LOC: ED 10:44
PROVIDERS: Emergency Medicine
DX: K29.20 Alcoholic gastritis without bleeding (principal); J45.909 Unspecified asthma, uncomplicated; I10 Essential (primary) hypertension; Z98.890 Other specified postprocedural states
CPT/HCPCS: J2405; J3490; J7030

== ENCOUNTER 2019-10-15 22:24 | Emergency (ER) | payer OTHER ==
[~2019-10-15] VITALS: Ht 182.9 cm; Wt 79.4 kg
[2019-10-15 22:39] VITALS: Ht 182.9 cm; Wt 79.4 kg
[2019-10-16 09:35] VITALS: BP 124/71
== END 2019-10-16 11:29 | disposition home or self-care (01) ==
LOC: ED 22:24
DX: F10.120 Alcohol abuse with intoxication, uncomplicated (principal); I10 Essential (primary) hypertension; Z86.73 Personal history of transient ischemic attack (TIA), and cerebral infarction without residual deficits

== ENCOUNTER 2019-11-29 12:34 | Emergency (ER) | payer OTHER ==
[~2019-11-29] VITALS: Ht 167.6 cm; Wt 67.1 kg
[2019-11-29 12:57] VITALS: Ht 167.6 cm; Wt 67.1 kg
[2019-11-29 15:42] VITALS: BP 126/67
== END 2019-11-29 15:42 | disposition home or self-care (01) ==
LOC: ED 12:34
DX: M25.512 Pain in left shoulder (principal); M25.522 Pain in left elbow; J45.909 Unspecified asthma, uncomplicated; I10 Essential (primary) hypertension

== ENCOUNTER → 2020-04-13 | Emergency (ER) | payer OTHER | LOC: ED 15:43 | DX: Z53.21 Procedure and treatment not carried out due to patient leaving prior to being seen by health care provider (principal) ==

== ENCOUNTER 2020-12-09 16:24 | Emergency (ER) | payer OTHER ==
[~2020-12-09] VITALS: Ht 182.9 cm; Wt 68.0 kg
[2020-12-09 16:25] VITALS: Ht 182.9 cm; Wt 68.0 kg
[2020-12-09] MEDS ORDERED: FEMARA2.5 MG PO (18:07)
[2020-12-09 18:58] LABS: BASOPHIL % 0.3 % (0.2-1.5); PLATELET COUNT 225 x10^3mcL (152-348)
[2020-12-09 19:05] LABS: RED CELL DISTRIBUTION WIDTH 14.7 % (12.1-16.2)
[2020-12-09 19:39] LABS: CALCIUM 8.6 mg/dL (8.5-10.1); CARBON DIOXIDE 25.9 mmol/L (21-32); CHLORIDE SERUM 104 mmol/L (98-107); CREATININE SERUM 0.7 mg/dL (0.7-1.3); GFR1 > 60 mL/min; GLUCOSE SERUM 91 mg/dL (74-106); POTASSIUM SERUM 3.4 mmol/L (3.5-5.1); SODIUM SERUM 141 mmol/L (136-145)
[2020-12-10 00:37] LABS: microscopic required? NO
[2020-12-10 00:55] LABS: urine erythrocyte NEGATIVE (NEGATIVE)
[2020-12-10 02:02] LABS: AMPHETAMINE QUAL UR NONE DETECTED (See below)
[2020-12-10 06:13] VITALS: BP 108/70
== END 2020-12-10 06:13 | disposition home or self-care (01) ==
LOC: ED 16:24
PROVIDERS: Emergency Medicine
DX: F10.129 Alcohol abuse with intoxication, unspecified (principal); J45.909 Unspecified asthma, uncomplicated; I10 Essential (primary) hypertension; Z20.822 Contact with and (suspected) exposure to COVID-19; Z86.73 Personal history of transient ischemic attack (TIA), and cerebral infarction without residual deficits; Y90.8 Blood alcohol level of 240 mg/100 ml or more
CPT/HCPCS: G0480; J3411; J3475; J3490; J7030

== ENCOUNTER 2020-12-26 16:48 | Emergency (ER) | payer OTHER ==
[~2020-12-26] VITALS: Ht 188 cm; Wt 77.1 kg
[~2020-12-26 16:48] MED LIST changes: +FEMARA2.5 MG PO
[2020-12-26 16:52] VITALS: Ht 188 cm; Wt 77.1 kg
[2020-12-26 19:36] VITALS: BP 112/68
== END 2020-12-26 20:30 | disposition home or self-care (01) ==
LOC: ED 16:48
DX: F10.129 Alcohol abuse with intoxication, unspecified (principal); J45.909 Unspecified asthma, uncomplicated; I10 Essential (primary) hypertension; Z86.73 Personal history of transient ischemic attack (TIA), and cerebral infarction without residual deficits; Z90.89 Acquired absence of other organs